=== PATIENT | male | born 1940 | race Caucasian/White ===

== ENCOUNTER → 2017-08-03 08:21 | Outpatient (CLI) | payer MEDICARE, OTHER, SELFPAY ==
[2017-08-03 10:30] LABS: Cholesterol 174 mg/dL (140-199); HDL Cholesterol 51 mg/dL (40-60); LDL Cholesterol Calculated 105 mg/dL (<100); Triglycerides 90 mg/dL (35-150)
== END ==
PROVIDERS: PCP Family Medicine; Visit Provider Internal Medicine Cardiovascular Disease
DX: I25.10 Atherosclerotic heart disease of native coronary artery without angina pectoris (principal); E78.6 Lipoprotein deficiency
CPT/HCPCS: 36415; 80061

== ENCOUNTER → 2017-09-27 12:44 | Outpatient (CLI) | payer MEDICARE, OTHER, SELFPAY ==
--- NOTE | 2017-09-27 | DI.MRI.S_ITS ---
PROCEDURE: MRFOOT LT WO CON INDICATIONS: LEFT FOOT PAIN TECHNIQUE: Noncontrast sagittal T1 spin echo and T2 fast spin echo with fat saturation, long-axis T1 spin echo and T2 fast spin echo with fat saturation, short-axis T1 spin echo and T2 fast spin echo with fat saturation through the forefoot. COMPARISON: [facility], , FOOT 3V LEFT, 05/10/2017, 16:00. FINDINGS: Image quality: Excellent. Bones and joints: No bone marrow contusions or metatarsal stress fractures. The sesamoid bones appear in expected positions, without internal edema. Mild first metatarsophalangeal joint degeneration. No intraosseous lesions. There is scattered mid foot degenerative spurring and subchondral cystic change. Soft tissues: The visualized plantar foot muscles demonstrate normal signal and bulk. Visualized flexor and extensor tendons appear intact, without tenosynovitis. The distal insertions of the peroneus brevis and longus tendons appear intact. The principal Lisfranc ligament appears intact. No soft tissue ganglion cysts or bursal fluid collections. Sagittal images demonstrate no evidence for plantar plate tears. IMPRESSION: Diffuse midfoot joint degeneration. While technically nonspecific, this appearance in conjunction with vascular calcifications on the comparison radiograph dated 05/10/17 raise the possibility of early neuropathic arthropathy. Please correlate clinically. Mild first MTP joint degeneration. Dictated by: Rodrigue Hinojosa M.D. on 09/27/2017 at 16:42 Approved by: Rodrigue Hinojosa M.D. on 09/27/2017 at 16:51
== END ==
PROVIDERS: Family Provider Family Medicine; PCP Family Medicine; Visit Provider Family Medicine
DX: M19.072 Primary osteoarthritis, left ankle and foot (principal); M79.672 Pain in left foot
CPT/HCPCS: 73718

== ENCOUNTER 2017-10-06 16:56 | Emergency (ER) | payer MEDICARE, OTHER, SELFPAY ==
[2017-10-06 16:58] VITALS: BP 135/70; PULSE 60; RESP 20; TEMP 36.7; O2SAT 100; BMI 25.0
--- NOTE | 2017-10-06 17:02 | DI.RAD.S_ITS ---
PROCEDURE: XR RIBS RT MIN 3V W CXR 1V INDICATIONS: injury, pain TECHNIQUE: 3 views of the right ribs were acquired, along with a single view chest. COMPARISON: [facility], , CHEST 1 VIEW, 06/27/2016, 22:59. FINDINGS: Surgical changes and devices: None. Bones and chest wall: No fractures or dislocations. No suspicious bony lesions. Overlying soft tissues appear unremarkable. Lungs and pleura: No pleural effusions or pneumothorax. Lungs appear clear. Mediastinum: Mediastinal contours appear normal. Heart size is normal. IMPRESSION: No visualized acute fracture or dislocation. However, if clinical concern and/or pain persist, short interval imaging followup in 7-10 days is recommended, as occult injury cannot be definitively excluded. Dictated by: Sonja Díaz M.D. on 10/06/2017 at 18:05 Approved by: Sonja Díaz M.D. on 10/06/2017 at 18:07
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
[2017-10-06 17:48] VITALS: BP 133/60; PULSE 61; RESP 15; O2SAT 100
[2017-10-06 18:12] VITALS: PULSE 100; RESP 22; O2SAT 98
== END 2017-10-06 18:13 | disposition home or self-care (01) ==
LOC: ED 17:57
PROVIDERS: Emergency Provider Emergency Medicine; Family Provider Family Medicine; PCP Family Medicine
DX: S22.31XA Fracture of one rib, right side, initial encounter for closed fracture (principal); W18.30XA Fall on same level, unspecified, initial encounter
CPT/HCPCS: 71101; 99282; 99283

== ENCOUNTER 2017-11-15 06:48 | Day surgery (SDC) | payer MEDICARE, OTHER, SELFPAY ==
[2017-11-02 15:16] VITALS: BMI 25.0
[2017-11-15] VITALS (7 sets, daily range): BP systolic 112–126; BP diastolic 48–64; PULSE 60–74; RESP 10–20; TEMP 36–36.9; O2SAT 95–97; BMI 25.0
[2017-11-15] MEDS: LACTATED RINGERS 1,000 ML 100 ML IV (07:31)
--- NOTE | 2017-11-15 07:44 | PM.PREOP ---
Pre-operative Note Interval Note Pre-op Check: Yes History & Physical Reviewed by Physician and Yes Exam Performed Changes: No H&P completed within 30 days and has changed as indicated here:: Patient seen and examined today. History physical examination as documented within the last 30 days on the chart has not changed. Patient marked in preoperative area for surgery. Proceed with left inguinal hernia repair with mesh as planned today.
[2017-11-15] MEDS: MIDAZOLAM 2 MG/2 ML VIAL 1 MG IV (07:45)
[2017-11-15] MEDS: CEFAZOLIN 2 GM/100 ML FROZ.PIGGY IV (07:57)
--- NOTE | 2017-11-15 08:22 | SUR.OPER ---
Supine on padded OR bed, head on pillow, arms secured on padded arm boards at <90 degrees abduction, legs uncrossed, safety belt at thigh, tape over blanket over lower legs.
[2017-11-15] MEDS: BUPIVACAINE 0.5% (PF) VIAL 30 ML INJ (08:29)
[2017-11-15] MEDS: LIDOCAINE 1% W/EPI INJ 20 ML INJ (08:30)
[2017-11-15] MEDS: CEFAZOLIN 1 GM VIAL IV (08:31)
[2017-11-15] MEDS: LACTATED RINGERS 1,000 ML 42 ML IV (09:00)
--- NOTE | 2017-11-15 09:54 | PM.OP.1 ---
Operative Date/Time/Diagnoses Date of procedure: 11/15/17 Time of procedure: 09:54 Pre-op diagnosis: Symptomatic recurrent left inguinal hernia Post-op diagnosis: other (Symptomatic recurrent direct and indirect left inguinal hernia with lipoma of the cord) Procedure & Clinicians Procedure: Open repair of recurrent left inguinal hernia with mesh Same procedure as scheduled: Yes Indications: 76-year-old male with recurrent left inguinal mass causing pain and discomfort with activity. Examination and evaluation were consistent with recurrent left inguinal hernia. Open repair with mesh was recommended. Surgeon: Shayan Sharp Click Yes if Unassisted: Yes Anesthesia Type: General Operative Notes Findings: 1. Dense adhesions between the external oblique fascia, rectus fascia, and underlying spermatic cord. 2. Fusion of the external oblique fascia and rectus fascia due to chronic scar 3. 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 Reducible indirect left inguinal hernia 5. Direct left inguinal hernia also reducible 6. Intact spermatic cord structures including spermatic vessels and vas deferens. Ilioinguinal nerve could not be exactly identified in the scar tissue. 7. Normal position of testicles bilaterally at the conclusion of the case 8. Old permanent suture material within the operative field consistent with prior primary tissue repair in the distant past. No existing piece of mesh was found. Closure Type: primary Specimen(s): none sent Implants & Drains: Medium-size polypropylene Pro Loop mesh plug and onlay patch in the left inguinal canal Estimated Blood Loss (mL): 10 Blood products transfused: none Procedure in detail: After obtaining informed consent the patient was brought to the operating room placed supine on the table. After satisfactory induction of anesthesia the abdomen and genitalia were prepped and draped in usual sterile fashion. A SCOAP time-out was performed per standard protocol. A 1 :1 mixture 1% lidocaine with 1 :100,000 epinephrine and 0.5% plain Marcaine was injected in the skin and subcutaneous tissue of the left inguinal region for postoperative analgesia. Existing oblique scar was identified and incised with 10 scalpel blade. Bovie was used to achieve hemostasis and carried the dissection through the scar and subcutaneous tissue. A Weitlaner retractor was used to provide exposure. At this point meticulous sharp dissection and blunt dissection was employed in order to identify the tissue planes and the spermatic cord. Great care was taken to avoid injury to the structures. Cord was eventually identified and liberated from surrounding connective tissue with a combination of Metzenbaum scissors and blunt dissection. Spermatic cord was eventually encircled with the surgeon's fingers followed by a Maria Del Carmen drain. Cord was skeletonized using DeBakey forceps. The ileopubic tract was identified along with the conjoined tendon. Again, the external oblique fascia and rectus fascia were fused. However, the tissue was identified for purposes of the repair. Dissection of the spermatic cord revealed the direct hernia, indirect hernia, and large lipoma of the cord. The lipoma of the cord was removed after being clamped with hemostats and secured with 2 0 Vicryl suture ligatures. Indirect hernia sac was easily reduced back into the abdominal cavity. Direct hernia sac was liberated from surrounding scar tissue and reduced as well. Mesh was brought onto the operative field and soaked in Ancef solution. Plug was placed in the internal inguinal ring and secured with interrupted 2 0 Vicryl suture to surrounding connective tissue. Onlay patch was brought onto the operative field and secured with interrupted 0 Tycron sutures circumferentially. Laterally the mesh was secured to the ileal pubic tract while anteriorly was secured to the conjoined tendon. Medially the mesh was secured to the fused fascia as described above. Tails of the mesh were brought around the spermatic cord and placed deep to the external oblique fascia and secured with a single 0 Tycron suture. The repair was nicely intact and there was no evidence of strangulation of the cord through the mesh defect. Wound was irrigated with copious amounts of sterile saline solution and hemostasis was verified. Fascia was closed over the cord using running 3 0 Vicryl suture. Subcutaneous tissue was closed with interrupted 3 0 Vicryl suture. Skin was closed with a running 4 O Monocryl subcuticular stitch. Skin adhesive was placed over the wound. Testicles were normal descended position bilaterally at the conclusion of the case. Anesthesia was reversed and patient taken recovery in stable condition. Complications: none Condition: stable Disposition: PACU Plan for aftercare: 1. Discharge home 2. Follow up in surgery Clinic in 2 weeks
== END 2017-11-15 11:09 | disposition home or self-care (01) ==
PROVIDERS: Family Provider Family Medicine; PCP Family Medicine; Visit Provider Surgery
PROC: (CPT 49520; principal; 2017-11-15 07:45)
DX: K40.91 Unilateral inguinal hernia, without obstruction or gangrene, recurrent (principal); D17.6 Benign lipomatous neoplasm of spermatic cord; K66.0 Peritoneal adhesions (postprocedural) (postinfection); I25.10 Atherosclerotic heart disease of native coronary artery without angina pectoris
CPT/HCPCS: 49520; 93005; 93010; C1781; J0690; J1100; J2250; J2405; J2704; J3010

== ENCOUNTER → 2018-04-20 09:38 | Outpatient (CLI) | payer MEDICARE, OTHER, SELFPAY ==
[2018-04-20 10:24] LABS: Alanine Aminotransferase 35 IU/L (21-72); Albumin 4.2 g/dL (3.5-5.0); Albumin Globulin Ratio 1.4 (1.0-2.8); Alkaline Phosphatase 52 U/L (38-126); Aspartate Aminotransferase 34 IU/L (17-59); BUN Creatinine Ratio 19.1 (6-22); Bilirubin Total 1.5 mg/dL (0.2-1.3); Blood Urea Nitrogen 21 mg/dL (9-20); Calcium 9.4 mg/dL (8.4-10.2); Carbon Dioxide 27 mmol/L (22-32); Chloride 104 mmol/L (98-107); Cholesterol 139 mg/dL (140-199); Estimated Glomerular Filt Rate > 60.0 mL/min (>60); Glucose 98 mg/dL (80-110); HDL Cholesterol 49 mg/dL (40-60); HEMOLYSIS 16 (0-50); LDL Cholesterol Calculated 75 mg/dL (<100); Magnesium 2.2 mg/dL (1.6-2.3); Potassium 4.9 mmol/L (3.4-5.1); Sodium 139 mmol/L (137-145); Total Protein 7.2 g/dL (6.3-8.2); Triglycerides 76 mg/dL (35-150)
== END ==
PROVIDERS: Family Provider Family Medicine; PCP Family Medicine; Visit Provider Nurse Practitioner
DX: I48.0 Paroxysmal atrial fibrillation (principal); E78.5 Hyperlipidemia, unspecified
CPT/HCPCS: 36415; 80053; 80061; 83735

== ENCOUNTER → 2018-05-26 16:01 | Outpatient (CLI) | payer MEDICARE, OTHER, SELFPAY ==
--- NOTE | 2018-05-26 | DI.RAD.S_ITS ---
PROCEDURE: XR HUMERUS LT 2V INDICATIONS: LEFT HUMERUS PAIN TECHNIQUE: 2 views of the humerus were acquired. COMPARISON: None. FINDINGS: Bones: No fractures or dislocations. No suspicious bony lesions. Moderate AC and glenohumeral joint degeneration. Soft tissues: No suspicious soft tissue calcifications. IMPRESSION: No fracture. If the patient's pain or other symptoms persist, consider further evaluation with MRI Left shoulder joint degeneration Dictated by: Rodrigue Hinojosa M.D. on 05/26/2018 at 17:17 Approved by: Rodrigue Hinojosa M.D. on 05/26/2018 at 17:18
== END ==
PROVIDERS: PCP Family Medicine; Visit Provider Family Medicine
DX: M79.622 Pain in left upper arm (principal); M19.012 Primary osteoarthritis, left shoulder
CPT/HCPCS: 73060

== ENCOUNTER 2019-06-27 09:53 | Emergency (ER) | payer MEDICARE, OTHER, SELFPAY ==
[2019-06-27 09:55] VITALS: BP 161/65; PULSE 74; RESP 16; TEMP 36.6; O2SAT 97
--- NOTE | 2019-06-27 09:58 | DI.RAD.S_ITS ---
PROCEDURE: XR FOOT RT MIN 3V INDICATIONS: 5th MT pain after twisting injury TECHNIQUE: 3 views of the foot were acquired. COMPARISON: [facility], , FOOT 3V LEFT, 05/10/2017, 16:00. FINDINGS: Bones: No fractures or dislocations. No suspicious bony lesions. Soft tissues: No tibiotalar joint effusion. Achilles tendon appears normal. Extensive small vessel calcifications suggest diabetes. IMPRESSION: No evidence acute bony abnormality of the right foot. If clinical suspicion and/or symptoms persist, further assessment with repeat plain films, or advanced imaging (e.g., CT, MRI, or bone scan) may be helpful for further assessment. Dictated by: Jn Carlos M.D. on 06/27/2019 at 10:38 Approved by: Jn Carlos M.D. on 06/27/2019 at 10:39
--- NOTE | 2019-06-27 10:07 | ED_ITS ---
HPI - Extremity Injury (Lower) General Chief Complaint: Extremity Injury, Lower Stated Complaint: right foot broken today/on asa Time Seen by Provider: 06/27/19 09:58 Source: patient Mode of arrival: Ambulatory Limitations: no limitations History of Present Illness HPI Narrative: 78-year-old male here for evaluation of right foot injury. Patient comes walking with the aid of crutches however putting pressure on his right foot. Patient states that he was walking this morning when he stepped off the curb and felt/heard a pop in his right foot. Since then he has had pain. He has been able to walk however it has been uncomfortable. No other injuries reported from the event. Related Data Home Medications Medication Instructions Recorded Confirmed aspirin 81 mg PO QDAY #0 06/27/16 06/16/18 metoprolol tartrate 12.5 mg PO DAILY #0 06/27/16 06/16/18 multivitamin 1 tab PO DAILY 10/06/17 06/16/18 atorvastatin 20 mg tablet 20 mg PO DAILY 12/07/17 06/16/18 coenzyme Q10 100 mg capsule 100 mg PO DAILY 12/07/17 06/16/18 apixaban 5 mg tablet 5 mg PO BID 06/16/18 06/16/18 Allergies Allergy/AdvReac Type Severity Reaction Status Date / Time No Known Allergies Allergy Verified 06/16/18 18:20 Review of Systems Constitutional Constitutional: Denies headache(s) ENT Ears, Nose, Mouth, and Throat: Denies headache(s) Musculoskeletal Musculoskeletal: Denies tingling Comments: Right foot pain Integumentary/Breasts Skin/Breast: Denies lesions and Denies rash Neurologic Neurologic: Denies headache(s) and Denies tingling Hematologic/Lymphatic Hematologic/Lymphatic: Denies easy bleeding and Denies easy bruising Patient History Medical History Ankle pain (Acute) Colon polyps (Acute) Coronary artery disease (Acute) Elevated cholesterol (Acute) GERD (gastroesophageal reflux disease) (Acute) Hernia of abdominal wall (Acute) History of angina (Acute) Surgical History (Updated 11/02/17 @ 15:18 by Lashaun Trinidad RN) History of cataract extraction with lens replacement (Acute) History of heart artery stent (Acute) History of inguinal hernia repair, bilateral (Acute) Social History marital status: household members: spouse Smoking Status: Never smoker alcohol intake: current substance use type: does not use Smoking Status: Never smoker alcohol intake frequency: 0-2 drinks per day Substance Use Type: does not use Exam Initial Vital Signs Initial Vital Signs: Vital Signs Temperature 97.8 F 06/27/19 09:55 Pulse Rate 74 06/27/19 09:55 Respiratory Rate 16 06/27/19 09:55 Blood Pressure 161/65 H 06/27/19 09:55 Pulse Oximetry 97 06/27/19 09:55 Const General: cooperative, comfortable and well developed Limitations: mental status not altered Cardio Pulses: dorsalis pedis present on the right Skin Lesions: no lesions Rashes: no rashes Neuro Sensory Exam: no sensory deficits noted Extrem Other: Patient has no proximal fibula tenderness. Able to flex and extend at the right ankle without pain. Has tenderness to palpation along the 5th metatarsal on the right foot. Otherwise his right foot exam is unremarkable. Does unremarkable. Course Orders Ordered: ED Orders 06/27/19 09:58 XR foot RT min 3V Stat Vital Signs Vital signs: Vital Signs - 8 hr 06/27/19 09:55 06/27/19 10:36 Temperature 97.8 F Pulse Rate 74 Pulse Rate [Right Dorsalis Pedis] 70 Respiratory Rate 16 Blood Pressure 161/65 H Pulse Oximetry 97 MDM - Extremity Injury (Lower) Imaging Data Extremity x-ray #1: Radiologist's Impression: [address] [address] XRay Report Signed Patient: Len Bennett RMR#: [id number] : [id number] Age/Sex: 78 / MDate of Service: 06/27/19 Loc: ED Accession Number: [id number] Procedure: XR foot RT min 3V Ordering Provider: Aurelio Elder D.O. PROCEDURE: XR FOOT RT MIN 3V INDICATIONS: 5th MT pain after twisting injury TECHNIQUE: 3 views of the foot were acquired. COMPARISON: [facility], , FOOT 3V LEFT, 05/10/2017, 16:00. FINDINGS: Bones: No fractures or dislocations. No suspicious bony lesions. Soft tissues: No tibiotalar joint effusion. Achilles tendon appears normal. Extensive small vessel calcifications suggest diabetes. IMPRESSION: No evidence acute bony abnormality of the right foot. If clinical suspicion and/or symptoms persist, further assessment with repeat plain films, or advanced imaging (e.g., CT, MRI, or bone scan) may be helpful for further assessment. Dictated by: Jn Carlos M.D. on 06/27/2019 at 10:38 Approved by: Jn Carlos M.D. on 06/27/2019 at 10:39 Discharge Plan Departure Patient Disposition: Home Clinical Impression: Injury of foot, right Qualifiers: Encounter type: initial encounter Qualified Code(s): S99.921A - Unspecified injury of right foot, initial encounter Instructions: How to Use Crutches, How To Perform RICE (Rest, Ice, Compress, Elevate) Activity Restrictions/Additional Instructions: There were no fractures noted on the x-rays. You can use the crutches as needed however you can put pressure on your right foot and walk as tolerated. I do recommend you keep her foot elevated and iced. Return to the emergency department for any new or worsening symptoms Prescriptions: No Action Eliquis 5 mg tablet 5 mg PO BID RF: 0 aspirin 81 MG tablet,delayed release (DR/EC) 81 mg PO QDAY Qty: 0 RF: 0 metoprolol tartrate 25 MG tablet 12.5 mg PO DAILY Qty: 0 RF: 0 atorvastatin 20 mg tablet 20 mg PO DAILY RF: 0 coenzyme Q10 100 mg capsule 100 mg PO DAILY RF: 0 multivitamin 1 tab PO DAILY RF: 0 Referrals: Aurelio Rand MD [Primary Care Provider] -
[2019-06-27 10:36] VITALS: PULSE 70
[2019-06-27 11:15] VITALS: BP 146/72; PULSE 62; RESP 14; O2SAT 100
== END 2019-06-27 11:16 | disposition home or self-care (01) ==
PROVIDERS: Emergency Provider Emergency Medicine; PCP Family Medicine
DX: S99.921A Unspecified injury of right foot, initial encounter (principal); W22.8XXA Striking against or struck by other objects, initial encounter
CPT/HCPCS: 73630; 99283

== ENCOUNTER → 2019-08-27 12:27 | Outpatient (CLI) | payer MEDICARE, OTHER, SELFPAY ==
[2019-08-27 13:34] LABS: INR 1.4 (0.9-1.3); Prothrombin Time 16.3 SECONDS (10.1-12.7)
[2019-08-27 13:45] LABS: BUN Creatinine Ratio 18.4 (6-22); Blood Urea Nitrogen 18 mg/dL (9-20); Calcium 9.3 mg/dL (8.4-10.2); Carbon Dioxide 23 mmol/L (22-32); Chloride 106 mmol/L (98-107); Estimated Glomerular Filt Rate > 60.0 mL/min (>60); Glucose 99 mg/dL (80-110); HEMOLYSIS < 15 (0-50); Potassium 4.7 mmol/L (3.4-5.1); Sodium 138 mmol/L (137-145)
== END ==
PROVIDERS: PCP Family Medicine; Referring Provider Internal Medicine Cardiovascular Disease; Visit Provider Internal Medicine Cardiovascular Disease
DX: I20.0 Unstable angina (principal)
CPT/HCPCS: 36415; 80048; 85610

== ENCOUNTER → 2019-12-15 09:25 | Outpatient (CLI) | payer MEDICARE, OTHER, SELFPAY ==
[2019-12-16 22:41] LABS: COVID19 Sendout Not Detected (Not Detect)
== END ==
PROVIDERS: PCP Family Medicine; Visit Provider Physician Assistant
DX: Z11.59 Encounter for screening for other viral diseases (principal)
CPT/HCPCS: 87635

== ENCOUNTER → 2019-12-18 09:09 | Outpatient (CLI) | payer MEDICARE, OTHER, SELFPAY ==
--- NOTE | 2019-12-18 | DI.ECHO.S_ITS ---
[place] [facility]---------+ [facility] +---------+ : : [address] : : : : [place] : : : : [id number] : : : : Phone: [phone]+ Echocardiogram Report + + :Name: CHRISTOPHER BETANCOURT Study Date: 12/18/2019 Height: 68 in : :[facility] Weight: 160 lb : : Gender: Male BSA: 1.9 m2 : :: 1940 Age: 79 yrs BP: 114/66 mmHg: :Reason For Study: ATRIAL FIBRILLATION : :Ordering Physician: Jun NORRISformed By: Marbella Torres : :Referring: MAHESH NORRIS : + + Interpretation Summary The left ventricle is normal in size and wall thickness. The ejection fraction is estimated to be 55-60%. Left ventricular wall motion is normal. Diastolic parameters suggest a relaxation abnormality of the left ventricle, consistent with probable normal filling pressures. The right ventricle is at the upper limits of normal in size. The right ventricular systolic function is normal. Pulmonary artery pressures cannot be estimated because of the lack of a measurable TR jet velocity but the IVC suggests a CVP of around 3 mmHg. Both atria are normal in size. The atrial septum is aneurysmal. Cannot rule out PFO. Consider agitated saline contrast study (bubble study) to rule out shunt. There is no significant valvular heart disease. The ascending aorta is mildly enlarged. Procedure: A two-dimensional transthoracic echocardiogram with color flow and Doppler was performed. The study quality was technically adequate. Comparison is made with the echocardiogram of 06/20/2015. The patient was in sinus bradycardia with heart rates between 55 bpm during the exam. Left Ventricle: The left ventricle is normal in size and wall thickness. The ejection fraction is estimated to be 55-60%. Left ventricular wall motion is normal. Diastolic parameters suggest a relaxation abnormality of the left ventricle, consistent with probable normal filling pressures. Right Ventricle: The right ventricle is at the upper limits of normal in size. The right ventricular systolic function is normal. Atria: Both atria are normal in size. The atrial septum is aneurysmal. Cannot rule out PFO. Consider agitated saline contrast study (bubble study) to rule out shunt. Mitral Valve: The mitral valve leaflets appear mildly thickened, but open well. There is trace mitral regurgitation. Aortic Valve: The aortic valve is trileaflet. The aortic valve opens well. There is no aortic valve stenosis. No aortic regurgitation is present. Tricuspid Valve: The tricuspid valve is normal in structure and function. There is a trace or physiologic amount of tricuspid regurgitation. Pulmonary artery pressures cannot be estimated because of the lack of a measurable TR jet velocity but the IVC suggests a CVP of around 3 mmHg. Pulmonic Valve: The pulmonic valve is not well seen, but is grossly normal. There is mild pulmonic regurgitation. There is no significant valvular heart disease. Great Vessels: The aortic root is normal size. The ascending aorta is mildly enlarged. The IVC is of normal diameter and collapses greater than 50% with a sniff. This suggests a low right atrial pressure of 3 mm Hg. Pericardium/ Pleura There is no pericardial effusion. There is no pleural effusion. MMode/2D Measurements & Calculations LVIDd: 4.3 cm LVOT diam: 2.4 cm LVIDs: 3.2 cm Ao root diam: 3.3 cm FS: 26.5 % asc Aorta Diam: 3.7 cm EPSS: 0.73 cm Ao Arch Diam (Prox Trans): 3.3 cm IVSd: 0.79 cm LVPWd: 0.89 cm LV babb. diameter/BSA (cm/m^2): 2.3 LV sys. diameter/BSA (cm/m^2): 1.7 LA A2 area: 23.3 cm2 RA long axis: 6.3 cm LA A4 area: 18.0 cm2 RA area: 20.4 cm2 LA length (vol): 5.8 cm RA vol: 56.6 ml LA vol: 61.8 ml RA : 30.5 ml/m2 LA vol index: 33.3 ml/m2 IVC diam: 1.7 cm RVD1 (basal): 4.0 cm TAPSE: 2.3 cm Doppler Measurements & Calculations Ao V2 max: 123.1 cm/sec LVOT Max Otis: 86.7 cm/sec Ao V2 mean: 85.2 cm/sec LV V1 max P.0 mmHg Ao max P.1 mmHg LV V1 VTI: 20.7 cm Ao mean P.3 mmHg NANCY(I,D): 3.4 cm2 Ao V2 VTI: 26.6 cm NANCY(V,D): 3.1 cm2 sev ratio: 0.78 NANCY indexed to BSA (cm^2/m^2): 1.9 MV E max otis: 50.9 cm/sec SV(LVOT): 91.7 ml MV A max otis: 56.2 cm/sec MV E/A: 0.91 Med Peak E' Otis: 8.9 cm/sec E/E' med: 5.7 Lat Peak E' Otis: 12.8 cm/sec E/E' lat: 4.0 E/e' average: 4.9 MV dec time: 0.32 sec Reading Physician:04:30 PM
--- NOTE | 2019-12-18 18:24 | DI.NM.S_ITS ---
DATE OF SERVICE: 12/18/2019 PROCEDURE: Exercise perfusion study. INDICATIONS: AFib, atrial flutter, history of multiple PCI to LAD, circumflex, as well as RCA. RADIOPHARMACEUTICAL: 26 millicurie technetium-99m Myoview IV was injected at stress and 12.5 millicurie technetium-99m Myoview IV was injected at rest. CARDIAC STRESS: The patient underwent exercise perfusion study under the supervision of an attending staff. He walked on Malcom protocol for 8 minutes 31 seconds, achieved 92 percent of target heart rate and normal blood pressure response. Baseline blood pressure 130/62. Peak blood pressure 152/84. The patient achieved functional aerobic impairment of -43 percent and 10.1 METs of workload. Baseline rhythm was sinus. During stress, there were no convincing ischemic changes. No significant sustained arrhythmias. At around 7 minutes and 50 seconds into the exercise, patient felt chest discomfort, which increased to 4 in intensity on a scale of 1-10 and subsided at rest. RAW DATA: There is increased subdiaphragmatic activity. GATED STUDY: Stress LV ejection fraction 69 and resting LV ejection 58 percent without any obvious wall motion abnormalities. Resting end-diastolic volume 109 mL. TID ratio 1.06, which is within normal limits. Lung/heart ratio 0.56, which is abnormal. However, on visual inspection of the raw images, I do not see any significant lung uptake. MYOCARDIAL PERFUSION: Stress supine, resting supine and stress prone images were compared to each other. Stress supine and resting supine images revealed moderate size, moderate to severely decreased perfusion of inferior wall, inferoapex, as well as basal inferior lateral wall, which got significantly improved during prone images, suggestive of diaphragmatic tissue attenuation artifact. Prone images revealed minimally decreased perfusion of inferior apex. There was significant improvement in prone images. No reversible ischemia. CONCLUSION: I will call this study likely a normal exercise perfusion study with evidence of diaphragmatic tissue attenuation artifact, which got significantly improved during prone images. No reversible ischemia. Excellent exercise tolerance. The patient walked on Malcom protocol for 8 minutes 31 seconds with normal hemodynamic response. Functional aerobic impairment -43 percent. The patient did develop transient chest discomfort at peak exercise with resolution in recovery. However, there were no convincing ischemic electrocardiographic changes. As far as perfusion scan is concerned, this is a low-risk myocardial perfusion scan. On visual inspection, I do not see any significant lung uptake. Transient ischemic dilatation ratio was within normal limits. Len Bennett - ASPEN/farhan/hemalatha doc#: [id number]/job#: [id number] dd: 12/18/2019 17:28:00 dt: 12/18/2019 18:14:00 DICTATING MD/COPIES TO: Dianne Murcia MD COPIES MNE: RADHA;
== END ==
PROVIDERS: PCP Family Medicine; Referring Provider Physician Assistant; Visit Provider Internal Medicine Cardiovascular Disease
DX: I37.1 Nonrheumatic pulmonary valve insufficiency (principal); I77.89 Other specified disorders of arteries and arterioles; I48.0 Paroxysmal atrial fibrillation; I48.92 Unspecified atrial flutter; I25.118 Atherosclerotic heart disease of native coronary artery with other forms of angina pectoris; Z95.5 Presence of coronary angioplasty implant and graft
CPT/HCPCS: 36415; 78452; 84439; 84443; 93017; 93306; A9502

== ENCOUNTER → 2020-03-03 09:43 | Outpatient (CLI) | payer MEDICARE, OTHER, SELFPAY ==
[2020-03-03 11:42] LABS: Add Manual Diff / Slide Review NO; Basophils Absolute Auto 100 /uL (0-100); Basophils Percent Auto 1.3 % (0-2); Eosinophils Absolute Auto 100 /uL (0-450); Eosinophils Percent Auto 0.9 % (2-4); Hematocrit 40.8 % (41-53); Hemoglobin 14.3 g/dL (13.5-17.5); Lymphocytes Absolute Auto 1000 /uL (1100-4500); Lymphocytes Percent Auto 17.1 % (25-40); Mean Corpuscular Hemoglobin 31.8 PG (26-34); Mean Corpuscular Volume 90.8 fL (80-100); Monocytes Absolute Auto 700 /uL (0-900); Monocytes Percent Auto 11.5 % (3-14); Neutrophils Absolute Auto 4200 /uL (1500-7000); Neutrophils Percent Auto 69.2 % (50-75); Platelet Count 214 X10^3/uL (150-400); Red Blood Cell Count 4.49 X10^6/uL (4.5-5.9); Red Cell Distribution Width 12.4 % (11.6-14.8); White Blood Cell Count 6.1 X10^3/uL (4.5-11.0)
[2020-03-03 11:59] LABS: Alanine Aminotransferase 25 IU/L (<50); Albumin Globulin Ratio 1.3 (1.0-2.8); Alkaline Phosphatase 65 U/L (38-126); Amylase 101 U/L (30-110); Aspartate Aminotransferase 31 IU/L (17-59); BUN Creatinine Ratio 17.3 (6-22); Blood Urea Nitrogen 18 mg/dL (9-20); Calcium 9.4 mg/dL (8.4-10.2); Carbon Dioxide 29 mmol/L (22-32); Chloride 104 mmol/L (98-107); Estimated Glomerular Filt Rate > 60.0 mL/min (>60); Glucose 89 mg/dL (80-110); HEMOLYSIS < 15 (0-50); Lipase 220 U/L (23-300); Potassium 4.5 mmol/L (3.4-5.1); Sodium 136 mmol/L (137-145)
[2020-03-03 12:01] LABS: C-Reactive Protein Quant < 0.5 mg/dL (<1.0)
[2020-03-03 12:25] LABS: TSH w/ Reflex to FT4 1.25 uIU/mL (0.47-4.68)
[2020-03-03 12:27] LABS: Erythrocyte Sedimentation Rate 6 MM/HR (0-15)
== END ==
PROVIDERS: PCP Internal Medicine; Referring Provider Internal Medicine; Visit Provider Internal Medicine
DX: E78.2 Mixed hyperlipidemia (principal); I25.10 Atherosclerotic heart disease of native coronary artery without angina pectoris; R19.7 Diarrhea, unspecified; R63.4 Abnormal weight loss
CPT/HCPCS: 36415; 80053; 82150; 83690; 84443; 85025; 85651; 86140

== ENCOUNTER → 2020-07-01 08:34 | Outpatient (CLI) | payer MEDICARE, OTHER, SELFPAY ==
[2020-07-01 09:37] LABS: Alanine Aminotransferase 25 IU/L (<50); Albumin 3.7 g/dL (3.5-5.0); Albumin Globulin Ratio 1.6 (1.0-2.8); Alkaline Phosphatase 58 U/L (38-126); Aspartate Aminotransferase 30 IU/L (17-59); BUN Creatinine Ratio 17.5 (6-22); Bilirubin Total 1.1 mg/dL (0.2-1.3); Blood Urea Nitrogen 20 mg/dL (9-20); Calcium 9.3 mg/dL (8.4-10.2); Carbon Dioxide 24 mmol/L (22-32); Chloride 108 mmol/L (98-107); Estimated Glomerular Filt Rate > 60.0 mL/min (>60); Globulin 2.3 g/dL (1.7-4.1); Glucose 93 mg/dL (80-110); HEMOLYSIS < 15 (0-50); Potassium 4.6 mmol/L (3.4-5.1); Sodium 139 mmol/L (137-145)
[2020-07-01 09:47] LABS: INR 1.4 (0.9-1.3); Prothrombin Time 15.6 SECONDS (10.1-12.7)
[2020-07-02 08:12] LABS: Homocysteine 11.9 umol/L (0.0-19.2)
[2020-07-03 08:14] LABS: Cholesterol, Total 132 mg/dL (100-199); HDL-Cholesterol 47 mg/dL (>39); HDL-Particle (Total) 30.5 umol/L (>=30.5); LDL Particle 747 nmol/L (<1000); LDL Size 20.7 nm (>20.5); LDL-Cholsterol 69 mg/dL (0-99); LP-IR Score 33 (<=45); Small LDL- Particle 367 nmol/L (<=527); Triglycerides 80 mg/dL (0-149)
[2020-07-03 12:51] LABS: Lipoprotein (a) 62.8 nmol/L (<75.0)
== END ==
PROVIDERS: PCP Internal Medicine; Referring Provider Internal Medicine Cardiovascular Disease; Visit Provider Internal Medicine Cardiovascular Disease
DX: I48.0 Paroxysmal atrial fibrillation (principal); E78.5 Hyperlipidemia, unspecified
CPT/HCPCS: 36415; 80053; 80061; 83090; 83695; 83704; 85610

== ENCOUNTER → 2020-10-08 12:57 | Outpatient (CLI) | payer MEDICARE, OTHER, SELFPAY ==
--- NOTE | 2020-10-08 12:59 | DI.RAD.S_ITS ---
PROCEDURE: XR ANKLE LT MIN 3V INDICATIONS: swelling TECHNIQUE: 3 views of the ankle were acquired. COMPARISON: None. FINDINGS: Bones: No fractures or dislocations. Degenerative arthritis of the tibiotalar joint, likely posttraumatic. Mild widening of the ankle mortise laterally, of uncertain chronicity. No suspicious bony lesions. Soft tissues: No tibiotalar joint effusion. Achilles tendon appears normal. Mild soft tissue swelling. IMPRESSION: 1. Degenerative arthritis, likely posttraumatic. 2. Lateral widening of the ankle mortise, of uncertain chronicity. 3. No evidence acute bony abnormality of the left ankle. If clinical suspicion and/or symptoms persist, further assessment with repeat plain films, or advanced imaging (e.g., CT, MRI, or bone scan) may be helpful for further assessment. Dictated by: Jn Carlos M.D. on 10/08/2020 at 13:13 Approved by: Jn Carlos M.D. on 10/08/2020 at 13:15
== END ==
PROVIDERS: PCP Internal Medicine; Referring Provider Physician Assistant; Visit Provider Physician Assistant
DX: M25.472 Effusion, left ankle (principal); M19.072 Primary osteoarthritis, left ankle and foot
CPT/HCPCS: 73610

== ENCOUNTER → 2020-12-12 11:32 | Outpatient (CLI) | payer MEDICARE, OTHER, SELFPAY ==
[2020-12-12 13:41] LABS: COVID-19 CEPHEID PCR (VTM/NP) Negative (Negative)
== END ==
PROVIDERS: PCP Internal Medicine; Visit Provider Physician Assistant
DX: Z20.822 Contact with and (suspected) exposure to COVID-19 (principal); Z01.812 Encounter for preprocedural laboratory examination
CPT/HCPCS: C9803; U0003

== ENCOUNTER 2020-12-29 10:30 | Outpatient (RCR) | payer MEDICARE, OTHER, SELFPAY ==
--- OUTSIDE RECORDS SUMMARY | 2020-11-05 08:17 | XMS_ITS | Referral Summary ---
:1940 Author Organization [facility] Address [address] [place] [address] Care Team Providers Name Role Phone MD Tate Primary Care Provider Reason for Referral Rehabilitation - Outpatient (Routine) - Authorized Specialty Diagnoses / Procedures Referred By Contact Refer red To Contact Cardiac Rehabilitation Diagnoses Status post angioplasty with stent Paroxysmal atrial fibrillation (CMS/HCC) Coronary artery disease of [place] artery [place] heart with stable angina pectoris (CMS/HCC) [facility] [address] [place] [id number] [place], [place] Phone: [phone] Referral ID Status Reason Start Date Expiration Date Visits V isits Requested Authorized [id number] Authorized 08/28/2020 08/23/2021 1 1 Reason for Visit Reason Comments Coronary Artery Disease Hyperlipidemia Hospital Discharge Follow-up Encounter Details Date Type Department Care Team Description 08/27/2020 Office Visit [facility] Jose Luis Jones, Coronary artery disease of [place] artery [place] heart with stable angina pectoris (CMS/HCC) (Primary Dx); Clinics Cardiology [facility] Status post angioplasty with stent; [address] Paroxysmal atrial fibrillati on (CMS/HCC); [address] [place] [address], [address] Dyslipidemia [address] [place] [id number] [phone] Allergies Active Allergy Reactions Severity Noted Date Comments No Known Allergies 10/14/2016 documented as of this encounter (statuses as of 11/04/2020) Medications Medication Sig Dispensed Refills Start Date End Date Status atorvastatin Take 1 90 tablet 3 11/27/2018 Active (LIPITOR) 20 mg tablet by tablet mouth once every evening for high cholesterol. coenzyme Q10 Take 100 mg 0 Activ e (CoQ-10) 100 mg by mouth capsule daily MULTIVITAMIN ORAL Take 1 0 Ac tive tablet by mouth daily metoprolol Take 0.5 45 tablet 3 06/30/2020 Active succinate XL tablets 2 (TOPROL-XL) 25 mg (12.5 mg 24 hr tablet total) by mouth daily apixaban (ELIQUIS) Take 1 180 tablet 3 07/03/2020 Active 5 mg tablet tablet (5 mg total) by mouth 2 (two) times a day clopidogreL Take 1 90 tablet 3 09/03/2019 (PLAVIX) 75 mg tablet (75 1 tablet mg total) by mouth daily evolocumab 140 Inject 140 1 mL 3 07/03/2020 Dis continued mg/mL pen injector mg under the 1 (Therapy skin every completed ) 14 (fourteen) days documented as of this encounter (statuses as of 11/04/2020) Active Problems Problem Noted Date Paroxysmal atrial fibrillation 12/22/2017 Exertional chest pain 12/16/2017 History of coronary artery stent placement 11/11/2017 Coronary artery disease [place] artery [place] hea rt with stable 07/05/2017 angina pectoris Palpitations 07/05/2017 Dizziness 07/05/2017 SVT (supraventricular tachycardia) 07/05/2017 Tinnitus of both ears 07/05/2017 Dyslipidemia 07/05/2017 Low HDL (under 40) 07/05/2017 documented as of this encounter (statuses as of 11/04/2020) Immunizations Name Administration Dates Next Due Moderna SARS-CoV-2 Vaccine 05/12/2020, 04/14/2020 documented as of this encounter Social History Tobacco Use Types Packs/Day Years Used Date Never Smoker Smokeless Tobacco: Never Used Alcohol Use Standard Drinks/Week Comments No 0 (1 standard drink = 0.6 oz pure Stoppe d nightly wine 6 months ago alcohol) Sex Assigned at Date Recorded Not on file Job Start Date Occupation Industry Not on file Not on file Not on file documented as of this encounter Last Filed Vital Signs Vital Sign Reading Time Taken Comments Blood Pressure 98/58 08/27/2020 4:15 PM PDT Pulse - - Temperature - - Respiratory Rate - - Oxygen Saturation - - Inhaled Oxygen Concentration - - Weight 76 kg (167 lb 9.6 oz) 08/27/2020 4:15 PM PDT Height 172.7 cm (5' 8) 08/27/2020 4:15 PM PDT Body Mass Index 25.48 08/27/2020 4:15 PM PDT documented in this encounter Progress Notes MAEGAN Lucio - 08/27/2020 4:00 PM PDT Continue current medications Walk on flat surfaces, avoid hills if they cause discomfort Relax MAEGAN Lucio - 08/27/2020 4:00 PM PDT Subjective Patient ID: Len Bennett is a 79 y.o. male that had concerns including Coronary Artery Disease, Hyperlipidemia, and Hospital Discharge Follow-up. HPI: Len is a pleasant, anxious 79-year-old patient of Dr. Murcia'keo who comes to the clinic today for follow-up of successful IVUS guided CABINETMAKER HELPER PCI of the diagonal branch with a 2.5 x 15 mm resolute [place] CHRISTINA performed on 07/10/[facility] at [facility] by Dr. Fuentes. He was seen viatelemedicine on 07/02/2020 by the at [facility] complex coronary clinic for consideration of diagnostic angiography with PCI. He had been walking up to 4 miles a few times a week with a walking group and reported several months of angina when walking up hills associated with dyspnea and fatigue. He felt well after his August 2019 procedure and symptoms recurred. Review of angiogram by Dr. Fuentes revealed a residual large diagonal that was subtotally occluded. Revascularization was planned and patient underwent successful, uncomplicated PCI of large diagonal vessel via retrograde approach with a single stent placed via right radial artery access. There were no complications. ECG postprocedure showed sinus rhythm. He is on Plavix 75 mg daily. Care has been returned to primary trail construction worker, Dr. Murcia and he is here today for follow-up. Len continues to report chest pain when walking uphill. He describes this as left-sided anterior chest pain that he notices when his heart rate exceeds 120 bpm. Pain resolves with rest. He has not used sublingual nitroglycerin. Resting heart rate is 55. Blood pressures at home are 110s/60s. He reports occasional lightheadedness. He denies any shortness of breath, palpitations or edema. He does report occasional lightheadedness. He is tolerating medications well and looking forward to cardiac rehab. Problem list: CAD -PCI with CHRISTINA to mid LCx and OM branch June 2012 -PCI with CHRISTINA to proximal RCA June 2016 -PCI with CHRISTINA to mid LAD August 2019 Paroxysmal atrial fibrillation Atrial flutter during stress test 2017 Hypertension Hyperlipidemia Socially, patient is and lives with his . He is never smoked. He was previously a heavy drinker but does not drink currently. He is active and walks multiple times a week with a walking group. Past Medical History: Diagnosis Date ??? Arrhythmia PAF ??? Basal cell carcinoma ??? Chest pain ??? Coronary artery disease ??? Dizziness ??? Hyperlipidemia ??? Squamous cell carcinoma of skin of face Past Surgical History: Procedure Laterality Date ??? CARDIAC CATHETERIZATION 06/28 stentsx3 ??? INGUINAL HERNIA REPAIR Left 2018 ??? MOHS SURGERY 08/12/2015 Family History Problem Relation Age of Onset ??? Stroke Other Social History Socioeconomic History ??? Marital status: Spouse name: Not on file ??? Number of children: Not on file ??? Years of education: Not on file ??? Highest education level: Not on file Tobacco Use ??? Smoking status: Never Smoker ??? Smokeless tobacco: Never Used Substance and Sexual Activity ??? Alcohol use: No Comment: Stopped nightly wine 6 months ago ??? Drug use: No ??? Sexual activity: Defer Allergies Allergen Reactions ??? No Known Allergies Current Medication List Sig apixaban (ELIQUIS) 5 mg tablet Take 1 tablet (5 mg total) by mouth 2 (two) times a day atorvastatin (LIPITOR) 20 mg tablet Take 1 tablet by mouth once every evening for high cholesterol. clopidogreL (PLAVIX) 75 mg tablet Take 1 tablet (75 mg total) by mouth daily coenzyme Q10 (CoQ-10) 100 mg capsule Take 100 mg by mouth daily metoprolol succinate XL (TOPROL-XL) 25 mg 24 hr tablet Take 0.5 tablets (12.5 mg total) by mouth daily MULTIVITAMIN ORAL Take 1 tablet by mouth daily Review of Systems Constitutional: Negative for fatigue and unexpected weight change. Eyes: Negative for visual disturbance. Respiratory: Negative for chest tightness and shortness of breath. Cardiovascular: Negative for chest pain, palpitations and leg swelling. Endocrine: Negative for polydipsia. Genitourinary: Negative for hematuria. Skin: Negative for rash. Neurological: Negative for dizziness, weakness and light-headedness. Hematological: Does not bruise/bleed easily. Psychiatric/Behavioral: The patient is not nervous/anxious. All other systems reviewed and are negative. Objective Coronary angiography with PCI 07/10/2020 Coronary findings: Left main: The vessel is large and is angiographically normal. Left anterior descending colon previously placed mid LAD stent is widely patent. Second diagonal branch: Second diagonal lesion is 100% stenosed. Lesion is chronically occluded. Left circumflex: The vessel is moderate in size. There is mild diffuse disease in the vessel. Right coronary artery: The vessel is moderate in size. The vessel exhibits minimal luminal irregularities. Patent proximal stent. Intervention: PTCA was performed with a 2.5 x 40 mm compliant balloon. Follow-up angiography demonstrated a dissection plane in the diagonal branch post STAR. An IVUS imaging catheter was then inserted and demonstrated a distal reference vessel diameter of 2.3 mm. The proximal reference vessel diameter was 3.1 x 3.0 mm. There was a visible dissection plane and hematoma from the STAR as expected. A 2.5 x 15 mm resolute [place] CHRISTINA was then deployed in the proximal diagonal branch with good expansion. Final angiography revealed excellent results with 0% residual stenosis with no dissection, perforation or thrombosis. ECG 08/27/20 Sinus bradycardia [address] changes, QTC 413 ms BP 98/58 (BP Location: Left arm, Patient Position: Sitting) Ht 1.727 m Wt 76 kg BMI 25.48 kg/m?? Physical Exam: General Appearance: Anxious, pleasant, cooperative, no apparent distress HEET: Normocephalic atraumatic, EOMI Neck: No obvious mass, supple Respiratory: Good aeration, clear to auscultation and percussion, no rales or wheeze Cardiovascular: Nondisplaced PMI, RRR, normal S1 and normal S2, no murmurs/rubs/gallops, JVP 4-5 cm,no JVD Pulses: Carotid and radial pulses 2+ bilaterally without bruit, dorsalis pedis and anterior tibial pulses 2+ bilaterally Abdomen: Soft, nondistended, nontender, no heptosplenomegally, no hepatojugular reflux, normal bowelsounds without bruits Extremities: No clubbing, cyanosis or edema Neuro: Alert, no facial droop, tongue midline, no gross motor deficits Psych: Appropriate affect, normal mentation and memory Skin: Warm and dry, no rashes on face, neck, and lower extremities ECG today, 08/27/2020: Sinus bradycardia [address] changes, QTC 413 ms Assessment/Plan Diagnoses and all orders for this visit: Coronary artery disease of [place] artery of [place] heart with stable angina pectoris (CMS/HCC) Status post angioplasty with stent - ECG 12 Lead (Clinic - Same Day) Paroxysmal atrial fibrillation (CMS/HCC) Dyslipidemia Assessment/Plan Comments: Len is a pleasant but anxious 79-year-old patient of Dr. Murcia'keo who follows up today after successful PCI with CHRISTINA to proximal diagonal branch on 07/10/2020. He is on clopidogrel 75 mg daily. He continues to report stable angina provoked by walking uphill and high heart rates. He is clinically compensated. ECG today shows sinus bradycardia. Patient denies presyncope however does endorse some occasional positional lightheadedness. He wears an apple watch and reports a resting heart rate of 55 bpm. A significant amount of time was spent discussing the importance of listening to his body andnot pushing himself at this time. Patient will begin cardiac rehab in the near future where he can e xercise under supervision. With regard to paroxysmal atrial fibrillation, he denies any palpitations. Postop ECG showed sinus rhythm. He is anticoagulated with Eliquis. Denies signs of bleeding. Patient is on atorvastatin 20 mg daily as he was not able to tolerate 40 mg daily dosing. He brings with him today a letter from the [place] declining approval for Repatha. LDL 69 on 07/01/2020. Patient is encouraged to walk on flat surfaces, to proceed with cardiac rehab and continue current medications.He will follow-up with cardiology in 3 months time, sooner if he develops cardiovascular concerns. Electronically signed by MAEGAN Lucio 08/28/2020 8:31 AM documented in this encounter Plan of Treatment Upcoming Encounters Date Type Specialty Care Team Description 11/26/2020 Office Visit Cardiology Dianne Murcia MD [address] [address] [place] [address] (Wo rk) Scheduled Referrals Name Type Priority Associated Diagnoses Order S chedule XTRNL Referral to Outpatient Routine Status post Ordered: Cardiac Rehabilitation Referral angioplasty with 0 08/28/2020 stent Paroxysmal atrial fibrillation (CMS/HCC) Coronary artery disease of [place] artery of [place] heart with stable angina pectoris (CMS/HCC) documented as of this encounter Implants Implanted Type Area Scrip Clerk Device Shelf Model / Identifier Expiration Date Ser ial / Lot Stent Xience Milagros 2.25*12 - [id number] Stent N/A: Heart CALDERON [id number] / Implanted: Qty: 1 on 09/03/2019 at [facility] / [id number] Stent Xience Milagros 2.25*18 - [id number] Stent N/A: Heart CALDERON [id number] / Implanted: Qty: 1 on 09/03/2019 at [facility] / [id number] documented as of this encounter Procedures Procedure Name Priority Date/Time Associated Diagnosis Comme nts ECG 12-LEAD Routine 08/27/2020 4:09 PM Status post Results for this PDT angioplasty with stent proce dure are in the results section. documented in this encounter Results ECG 12 Lead (Clinic - Same Day) (08/27/2020 4:09 PM PDT) Specimen Narrative This result has an attachment that is no t available. documented in this encounter Visit Diagnoses Diagnosis Coronary artery disease of [place] artery of [place] heart with stable angina pectoris (CMS/HCC) - Primary Status post angioplasty with stent Postsurgical percutaneous transluminal c oronary angioplasty status Paroxysmal atrial fibrillation (CMS/HCC) Atrial fibrillation Dyslipidemia Other and unspecified hyperlipidemia documented in this encounter Insurance Payer Benefit Plan / Subscriber ID Effective Dates Phone Addre ss Type Group MEDICARE MEDICARE PART [id number] 2007-Gamaliel [phone] [address] [place] [address] STANDARD LIFE STANDARD LIFE [id number] 2016-Gamaliel [phone] [address] [address] [address] [place] [address] documented as of this encounter Advance Directives Documents on File Type Date Recorded Patient Administration Dean Explanati on Advance Directives and Living Will Latest Code Status on File Code Status Date Activated Date Inactivated Comments Full Code 09/03/2019 12:53 PM 09/04/2019 2:37 AM Care Teams Velvet Cutter Relationship Specialty Start Date End Date Shalom Ybarra MD PCP - General Family Medicine 10/02/20 [address] [place] [id number] documented as of this encounter
== END 2020-12-29 11:30 ==
LOC: CAR 10:30
PROVIDERS: PCP Internal Medicine; Referring Provider Internal Medicine; Visit Provider Internal Medicine Cardiovascular Disease
DX: Z95.5 Presence of coronary angioplasty implant and graft (principal)
CPT/HCPCS: 93798

== ENCOUNTER → 2021-01-09 11:14 | Outpatient (CLI) | payer MEDICARE, OTHER, SELFPAY ==
[2021-01-09 13:02] LABS: COVID-19 CEPHEID PCR (VTM/NP) Negative (Negative)
== END ==
PROVIDERS: PCP Internal Medicine; Visit Provider Physician Assistant
DX: Z20.822 Contact with and (suspected) exposure to COVID-19 (principal)
CPT/HCPCS: C9803; U0003

== ENCOUNTER → 2021-02-23 10:14 | Outpatient (CLI) | payer MEDICARE, OTHER, SELFPAY ==
[2021-02-23 17:23] LABS: COVID-19 CEPHEID PCR (VTM/NP) Negative (Negative)
== END ==
PROVIDERS: PCP Internal Medicine; Visit Provider Nurse Practitioner Family
DX: Z20.822 Contact with and (suspected) exposure to COVID-19 (principal)
CPT/HCPCS: C9803; U0003

== ENCOUNTER → 2021-03-11 08:48 | Outpatient (CLI) | payer MEDICARE, OTHER, SELFPAY ==
[2021-03-11 09:17] LABS: Add Manual Diff / Slide Review NO; Basophils Absolute Auto 100 /uL (0-100); Basophils Percent Auto 1.2 % (0-2); Eosinophils Absolute Auto 100 /uL (0-450); Eosinophils Percent Auto 2.7 % (2-4); Hemoglobin 13.8 g/dL (13.5-17.5); Lymphocytes Absolute Auto 1500 /uL (1100-4500); Lymphocytes Percent Auto 29.3 % (25-40); Mean Corpuscular HGB Conc 34.6 % (30-36); Mean Corpuscular Hemoglobin 31.3 PG (26-34); Mean Corpuscular Volume 90.4 fL (80-100); Monocytes Absolute Auto 500 /uL (0-900); Monocytes Percent Auto 9.2 % (3-14); Neutrophils Absolute Auto 3000 /uL (1500-7000); Neutrophils Percent Auto 57.6 % (50-75); Platelet Count 193 X10^3/uL (150-400); Red Blood Cell Count 4.42 X10^6/uL (4.5-5.9); Red Cell Distribution Width 12.7 % (11.6-14.8); White Blood Cell Count 5.2 X10^3/uL (4.5-11.0)
[2021-03-11 09:29] LABS: Alanine Aminotransferase 18 IU/L (<50); Albumin 3.8 g/dL (3.5-5.0); Albumin Globulin Ratio 1.5 (1.0-2.8); Alkaline Phosphatase 53 U/L (38-126); Aspartate Aminotransferase 23 IU/L (17-59); BUN Creatinine Ratio 13.1 (6-22); Bilirubin Total 1.1 mg/dL (0.2-1.3); Blood Urea Nitrogen 16 mg/dL (9-20); Calcium 9.3 mg/dL (8.4-10.2); Carbon Dioxide 27 mmol/L (22-32); Chloride 106 mmol/L (98-107); Cholesterol 118 mg/dL (140-199); Estimated Glomerular Filt Rate 57.4 mL/min (>60); Globulin 2.5 g/dL (1.7-4.1); Glucose 93 mg/dL (80-110); HDL Cholesterol 42 mg/dL (40-60); HEMOLYSIS < 15 (0-50); LDL Cholesterol Calculated 61 mg/dL (<100); Magnesium 2.1 mg/dL (1.6-2.3); Potassium 4.4 mmol/L (3.4-5.1); Sodium 137 mmol/L (137-145); Total Protein 6.3 g/dL (6.3-8.2); Triglycerides 77 mg/dL (35-150)
[2021-03-11 09:56] LABS: Thyroid Stimulating Hormone 1.49 uIU/mL (0.47-4.68)
== END ==
PROVIDERS: PCP Internal Medicine; Referring Provider Internal Medicine Cardiovascular Disease; Visit Provider Internal Medicine Cardiovascular Disease
DX: I25.10 Atherosclerotic heart disease of native coronary artery without angina pectoris (principal); I48.0 Paroxysmal atrial fibrillation; E78.6 Lipoprotein deficiency
CPT/HCPCS: 36415; 80053; 80061; 83735; 84443; 85025

== ENCOUNTER → 2021-04-21 14:43 | Outpatient (CLI) | payer MEDICARE, OTHER, SELFPAY ==
--- NOTE | 2021-04-21 | DI.ECHO.S_ITS ---
[facility] +---------+ : : [address] : [address] : : : : [id number] : : : : Phone: [phone]---------+ Echocardiogram Report + + :Name: CHRISTOPHER BETANCOURT Study Date: 04/21/2021 Height: 68 in : :[facility] ReadingLocation: Weight: 155 lb : : Gender: Male BSA: 1.8 m2 : :: 1940 Age: 80 yrs BP: 117/62 mmHg: :Reason For Study: ATRIAL FIBRILLATION : :Ordering Physician: ANTONIETA, : :ZACH Performed By: Marbella Torres : :Referring: ZACH FUNG : + + Interpretation Summary The left ventricle is normal in size and wall thickness. Left ventricular ejection fraction is estimated to be 55 +/- 5%. There has been no significant change in LVEF since the previous exam. The right ventricle is normal in size and function. No significant valvular pathology seen. The patient was in sinus bradycardia with heart rates between 45-57 bpm during the exam. Procedure: A two-dimensional transthoracic echocardiogram with color flow and Doppler was performed. The study quality was technically adequate. Comparison is made with the echocardiogram of 12/18/2019. The patient was in sinus bradycardia with heart rates between 45-57 bpm during the exam. Left Ventricle: The left ventricle is normal in size and wall thickness. There is no thrombus. Left ventricular ejection fraction is estimated to be 55 +/- 5%. There has been no significant change since the previous exam. No obvious regional wall motion abnormalities seen. MV E/A: 1.1 Med Peak E' Otis: 7.7 cm/sec E/E' med: 8.9. Right Ventricle: The right ventricle is normal in size and function. Atria: The left atrium is severely dilated. There has been no significant change since the previous study. Right atrial size is normal. The atrial septum is aneurysmal. No obvious PFO seen. Mitral Valve: The mitral valve leaflets appear mildly thickened, but open well. The mitral valve leaflets are mildly calcified. There is trace mitral regurgitation. Aortic Valve: The aortic valve is trileaflet. The aortic valve opens well. The aortic valve is slightly calcified. There is no aortic valve stenosis. No aortic regurgitation is present. Tricuspid Valve: There is mild tricuspid regurgitation. The right ventricular systolic pressure is estimated to be at least 30 mmHg based on an estimated right atrial pressure of 3 mm Hg. Pulmonic Valve: The pulmonic valve is not well seen, but is grossly normal. There is mild pulmonic regurgitation. Great Vessels: The aortic root is normal size. The ascending aorta could not be visualized. Mild atherosclerotic plaque(s) in the aortic arch. The IVC is of normal diameter and collapses greater than 50% with a sniff. This suggests a low right atrial pressure of 3 mm Hg. Pericardium/ Pleura There is no pericardial effusion. There is no pleural effusion. MMode/2D Measurements & Calculations LVIDd: 4.5 cm LVOT diam: 2.2 cm LVIDs: 3.4 cm Ao root diam: 3.2 cm FS: 25.6 % Ao Arch Diam (Prox Trans): 2.4 cm IVSd: 0.86 cm LVPWd: 0.80 cm LV babb. diameter/BSA (cm/m^2): 2.5 LV sys. diameter/BSA (cm/m^2): 1.8 LA A2 area: 26.6 cm2 RA long axis: 6.3 cm LA A4 area: 23.2 cm2 RA area: 17.6 cm2 LA length (vol): 5.8 cm RA vol: 42.0 ml LA vol: 89.8 ml RA : 22.9 ml/m2 LA vol index: 49.0 ml/m2 IVC diam: 2.0 cm RVD1 (basal): 3.7 cm TAPSE: 3.1 cm Doppler Measurements & Calculations Ao V2 max: 127.2 cm/sec LVOT Max Otis: 88.1 cm/sec Ao V2 mean: 90.5 cm/sec LV V1 max P.1 mmHg Ao max P.5 mmHg LV V1 VTI: 21.0 cm Ao mean P.6 mmHg NANCY(I,D): 2.5 cm2 Ao V2 VTI: 32.7 cm NANCY(V,D): 2.7 cm2 sev ratio: 0.64 NANCY indexed to BSA (cm^2/m^2): 1.4 MV E max otis: 67.9 cm/sec TR max otis: 258.0 cm/sec MV A max otis: 61.6 cm/sec TR max P.6 mmHg MV E/A: 1.1 PA V2 max: 103.8 cm/sec Med Peak E' Otis: 7.7 cm/sec PA V2 mean: 67.4 cm/sec E/E' med: 8.9 PA mean P.1 mmHg Lat Peak E' Otis: 12.0 cm/sec PA pr(Accel): 31.0 mmHg E/E' lat: 5.7 E/e' average: 7.3 MV dec time: 0.18 sec SV(LVOT): 81.8 ml Reading Physician:03:07 PM
== END ==
PROVIDERS: PCP Internal Medicine; Referring Provider Internal Medicine Cardiovascular Disease; Visit Provider Internal Medicine Cardiovascular Disease
DX: I07.1 Rheumatic tricuspid insufficiency (principal); I70.0 Atherosclerosis of aorta; I48.0 Paroxysmal atrial fibrillation
CPT/HCPCS: 93306

== ENCOUNTER → 2022-07-07 14:53 | Outpatient (CLI) | payer MEDICARE, OTHER, SELFPAY ==
[2022-07-07 15:36] LABS: Add Manual Diff / Slide Review NO; Basophils Absolute Auto 100 /uL (0-100); Basophils Percent Auto 0.9 % (0-2); Eosinophils Absolute Auto 0 /uL (0-450); Eosinophils Percent Auto 0.5 % (2-4); Hematocrit 40.1 % (41-53); Hemoglobin 14.1 g/dL (13.5-17.5); Lymphocytes Absolute Auto 1300 /uL (1100-4500); Lymphocytes Percent Auto 19.2 % (25-40); Mean Corpuscular HGB Conc 35.2 % (30-36); Mean Corpuscular Hemoglobin 32.3 PG (26-34); Mean Corpuscular Volume 91.8 fL (80-100); Monocytes Absolute Auto 600 /uL (0-900); Monocytes Percent Auto 9.1 % (3-14); Neutrophils Absolute Auto 4700 /uL (1500-7000); Neutrophils Percent Auto 70.3 % (50-75); Platelet Count 220 X10^3/uL (150-400); Red Blood Cell Count 4.36 X10^6/uL (4.5-5.9); Red Cell Distribution Width 12.3 % (11.6-14.8); White Blood Cell Count 6.7 X10^3/uL (4.5-11.0)
[2022-07-07 17:06] LABS: Alanine Aminotransferase 24 IU/L (<50); Albumin 3.9 g/dL (3.5-5.0); Albumin Globulin Ratio 1.5 (1.0-2.8); Alkaline Phosphatase 54 U/L (38-126); Aspartate Aminotransferase 27 IU/L (17-59); BUN Creatinine Ratio 15.1 (6-22); Bilirubin Total 0.9 mg/dL (0.2-1.3); Bilirubin Unconjugated 0.5 mg/dL (0.0-1.1); Blood Urea Nitrogen 19 mg/dL (9-20); Calcium 9.1 mg/dL (8.4-10.2); Carbon Dioxide 25 mmol/L (22-32); Chloride 103 mmol/L (98-107); Estimated Glomerular Filt Rate 58 mL/min (>60); Globulin 2.6 g/dL (1.7-4.1); Glucose 98 mg/dL (80-110); HEMOLYSIS < 15 (0-50); Lipase 148 U/L (23-300); Sodium 136 mmol/L (137-145); Total Protein 6.5 g/dL (6.3-8.2)
[2022-07-07 17:36] LABS: TSH w/ Reflex to FT4 1.36 uIU/mL (0.47-4.68)
== END ==
PROVIDERS: PCP Student in an Organized Health Care Education/Training Program; Referring Provider Student in an Organized Health Care Education/Training Program; Visit Provider Student in an Organized Health Care Education/Training Program
DX: R14.3 Flatulence (principal)
CPT/HCPCS: 36415; 80048; 80076; 83690; 84443; 85025

== ENCOUNTER → 2022-07-09 09:52 | Outpatient (CLI) | payer MEDICARE, OTHER, SELFPAY ==
[2022-07-12 13:34] LABS: H. Pylori Antigen Stool Negative (Negative)
== END ==
PROVIDERS: PCP Internal Medicine; Referring Provider Student in an Organized Health Care Education/Training Program; Visit Provider Student in an Organized Health Care Education/Training Program
DX: R14.3 Flatulence (principal); R10.33 Periumbilical pain
CPT/HCPCS: 87338

== ENCOUNTER → 2022-08-17 13:07 | Outpatient (CLI) | payer MEDICARE, OTHER, SELFPAY ==
--- NOTE | 2022-08-17 | DI.RAD.S_ITS ---
PROCEDURE: FL BARIUM SWALLOW INDICATIONS: BURPING, H/O ESOPHAGEAL STRICTURE COMPARISON: Located Within [facility], CT, CT ANGIO CHEST, 08/12/2021, 13:16[facility], RF, BARIUM SWALLOW, 02/28/2012, 10:11. FINDINGS: Function: There is abnormal esophageal peristalsis with multiple episodes of tertiary contractions resulting in delayed and retrograde flow of ingested oral contrast. No elicited gastroesophageal reflux. There is normal transit of a calibrated barium tablet through the esophagus into the stomach. Morphology: Air-contrast images demonstrate normal mucosal morphology. Single contrast views show no esophageal strictures, extrinsic mass effects, or diverticula. Limited images of the stomach demonstrate normal appearance. The small sliding hiatal hernia was noted during real-time imaging. IMPRESSION: Abnormal esophageal peristalsis with multiple episodes of tertiary contractions. No focal strictures identified. No gastroesophageal reflux elicited. Dictated by: Jose L Alexandre M.D. on 08/17/2022 at 21:10 Approved by: Jose L Alexandre M.D. on 08/17/2022 at 21:20
== END ==
PROVIDERS: PCP Internal Medicine; Referring Provider Internal Medicine; Visit Provider Internal Medicine
DX: R14.2 Eructation (principal); Z87.19 Personal history of other diseases of the digestive system; K44.9 Diaphragmatic hernia without obstruction or gangrene
CPT/HCPCS: 74220

== ENCOUNTER 2022-11-18 11:54 | Emergency (ER) | payer MEDICARE, OTHER, SELFPAY ==
[2022-11-18 11:59] VITALS: BP 127/62; PULSE 78; RESP 18; O2SAT 96; BMI 28.9
[2022-11-18 12:02] VITALS: TEMP 37.8
--- NOTE | 2022-11-18 12:56 | ED_ITS ---
HPI - URI/Sore Throat <Kat Lockwood PA-C - Last Filed: 11/18/22 14:00> General Chief Complaint: Upper Respiratory Symptoms Stated Complaint: COVID Time Seen by Provider: 11/18/22 12:06 Mode of arrival: Family Vehicle History of Present Illness HPI Narrative: Patient is an 82-year-old male who presents with fever and body aches, tested positive for COVID at home. He has had 3 vaccines against COVID and reports never having a COVID infection. He recently had a cardiac procedure involving 1 of his stents 2 weeks ago. 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 He takes his medication regularly. He took Tylenol several times yesterday for a fever but has not taken any today. He denies any chest pain, shortness of breath, nausea vomiting. He endorses generalized fatigue and body aches. He is accompanied by his daughter. Related Data Home Medications Medication Instructions Recorded Confirmed metoprolol tartrate 25 mg tablet 12.5 mg PO DAILY ##0 06/27/16 07/07/22 multivitamin 1 tab PO DAILY 10/06/17 07/07/22 atorvastatin 20 mg tablet 20 mg PO DAILY 12/07/17 07/07/22 coenzyme Q10 100 mg capsule 100 mg PO DAILY 12/07/17 07/07/22 apixaban 5 mg tablet (Eliquis) 5 mg PO BID 06/16/18 07/07/22 clopidogrel 75 mg tablet 75 mg PO DAILY 03/03/20 07/07/22 Allergies Allergy/AdvReac Type Severity Reaction Status Date / Time No Known Allergies Allergy Verified 07/07/22 14:22 Review of Systems <Kat Lockwood PA-C - Last Filed: 11/18/22 14:00> Review of Systems ROS Unobtainable: All systems reviewed & are unremarkable except as noted in HPI and below Patient History <Kat Lockwood PA-C - Last Filed: 11/18/22 14:00> Medical History Ankle pain 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 GERD (gastroesophageal reflux disease) H/O adenomatous polyp of colon Hernia of abdominal wall Mixed hyperlipidemia Paroxysmal atrial fibrillation Tinnitus Surgical History History of cataract extraction with lens replacement History of inguinal hernia repair, bilateral S/P coronary artery stent placement (~2017) S/P hernia repair (~2018) Family History Father Cancer Mother Stroke Grandfather Stroke Grandmother Breast cancer, stage 0 Social History marital status: household members: spouse Smoking Status: Never smoker alcohol intake: current substance use type: does not use Smoking Status: Never smoker alcohol intake frequency: 0-2 drinks per day Substance Use Type: does not use Exam <Kat Lockwood PA-C - Last Filed: 11/18/22 14:00> Narrative Exam Narrative: GENERAL: 82 year old patient appears stated age. Well-developed patient, in no distress. Appears anxious. NEURO: AOx3. HEAD: Atraumatic. Normocephalic. EYES: Pupils equal round and reactive. Extraocular motions intact. No scleral icterus. No injection or drainage. ENT: Nose without bleeding or purulent drainage. Airway patent. CARDIOVASCULAR: Distant heart sounds. Regular rate and rhythm without murmur. RESPIRATORY: Clear to auscultation. Breath sounds equal bilaterally. No wheezes, rales, or rhonchi. EXTREMITIES: No edema or joint tenderness. SKIN: No rash or erythema of visible areas Initial Vital Signs Initial Vital Signs: Vital Signs Pulse Rate 78 11/18/22 11:59 Respiratory Rate 18 11/18/22 11:59 Blood Pressure 127/62 11/18/22 11:59 Pulse Oximetry 96 11/18/22 11:59 Oxygen Delivery Method Room Air 11/18/22 11:59 <No Richter DO - Last Filed: 11/18/22 19:28> Initial Vital Signs Initial Vital Signs: Vital Signs Pulse Rate 78 11/18/22 11:59 Respiratory Rate 18 11/18/22 11:59 Blood Pressure 127/62 11/18/22 11:59 Pulse Oximetry 96 11/18/22 11:59 Oxygen Delivery Method Room Air 11/18/22 11:59 Course <Kat Lockwood PA-C - Last Filed: 11/18/22 14:00> Vital Signs Vital signs: Vital Signs - 8 hr 11/18/22 11:59 11/18/22 12:02 11/18/22 13:13 Temperature 100.0 F H Pulse Rate 78 77 Respiratory Rate 18 18 Blood Pressure 127/62 Pulse Oximetry 96 96 Oxygen Delivery Method Room Air Room Air <No Amy Richter DO - Last Filed: 11/18/22 19:28> Vital Signs Vital signs: Vital Signs - 8 hr 11/18/22 11:59 11/18/22 12:02 11/18/22 13:13 Temperature 100.0 F H Pulse Rate 78 77 Respiratory Rate 18 18 Blood Pressure 127/62 Pulse Oximetry 96 96 Oxygen Delivery Method Room Air Room Air MDM - URI/Sore Throat <Kat Lockwood PA-C - Last Filed: 11/18/22 14:00> MDM Narrative Medical decision making narrative: Multiple etiologies for patient's symptoms considered including, but not limited to: COVID infection, pneumonia, influenza. Patient is not ill-appearing, lung rivas clear bilaterally, oxygen saturation 99-100% on room air. He is not tachycardic and denies chest pain. Considered Paxlovid treatment; per up-to-date, not advised to change anticoagulant dose within 6 weeks of procedure, which would be necessary for Paxlovid prescription. Discussed with patient and his daughter, including risks and benefits of Paxlovid. He is at higher risk of severe disease given his age but has underlying known lung disease, no history of smoking. Patient and daughter in agreement that we will not pursue antiviral therapy. He will take Tylenol for fever, rest. Return precautions advised. Patient's symptoms improved over duration of stay with above-stated therapies. Findings and discharge diagnosis discussed with patient/family followed by verbalization of understanding Return precautions discussed with patient/family whom verbalize understanding of diagnosis and plan Discharge Plan Departure Patient Disposition: Home Clinical Impression: COVID-19 Instructions: DI for COVID-19 (Suspected or Confirmed ) Activity Restrictions/Additional Instructions: *You have been diagnosed with COVID infection. We discussed benefits and risks of antiviral treatment while you were in the emergency department today. Based on her your recent cardiac procedure in anticoagulants, we decided together that taking oral antiviral pills was not in your best interest. You should continue taking your prescribed anticoagulants while you have COVID. I suggest you take Tylenol, up to 3000 mg within 24 hours, for fever and body aches. Drink plenty of water and rest. You can buy an [id number] pulse oximeter to check your oxygen level. If it is less than 92% while you are resting, I would return to the emergency department for reassessment. If you have difficulty breathing, chest pain or other severe symptoms, please return at any time. *What to do: *Please continue to take your regular medications as directed. [ ] New medication prescriptions sent to your pharmacy: [ ] [ ] New medication written as a paper prescription [x ] No new medications given *Please follow up with your primary care provider in 2-3 days, call for an appointment. Let them know you were seen in the Emergency Department and that we ask that you be seen in follow up. We will electronically transmit a record of today's note if your PCP is in our system *If you do not have a primary care provider please contact [facility] Resource line at [phone]. They will ask some questions about your medical history and help get you set up with a doctor in the community. *Return to Emergency Department if you should have any new, worsening or concerning symptoms, such as [fever greater than 101 F, shaking chills, worsening pain, persistent vomiting or other concerning symptoms]. Prescriptions: No Action Eliquis 5 mg tablet 5 mg PO BID metoprolol tartrate 25 MG tablet 12.5 mg PO DAILY Qty: 0 clopidogrel 75 mg tablet 75 mg PO DAILY atorvastatin 20 mg tablet 20 mg PO DAILY coenzyme Q10 100 mg capsule 100 mg PO DAILY multivitamin 1 tab PO DAILY Referrals: Rosalio Tanner MD [Primary Care Provider] - Stand Alone Forms: Patient Portal/API <No Richter DO - Last Filed: 11/18/22 19:28> Cosign ED Attending Cospamelaature Attestation: I was immediately available in the department for consultation. Documentation has been reviewed.
[2022-11-18 13:13] VITALS: PULSE 77; RESP 18; O2SAT 96
== END 2022-11-18 13:13 | disposition home or self-care (01) ==
PROVIDERS: Emergency Provider Physician Assistant; PCP Internal Medicine
DX: U07.1 COVID-19 (principal)
CPT/HCPCS: 99281

== ENCOUNTER 2023-04-14 10:15 | Outpatient (RCR) | payer MEDICARE, OTHER, SELFPAY ==
--- OUTSIDE RECORDS SUMMARY | 2023-02-11 14:43 | XMS_ITS | Referral Summary ---
Author Name Unknown Organization [employer] [facility] Address [address] [place] [address] Care Team Providers Care Short Order Cook Name Role Phone Rosalio Tanner Primary Care Provider Reason for Referral * (Routine) - Authorized Specialty Diagnoses / Procedures Referred By Joan lim Referred To Contact Cardiac Rehabilitation Diagnoses Hx of coronary angioplasty Dianen Murcia MD [address] [place] [address] [address] [place] [address] [facility] [address] [place] [id number] Referral ID Status Reason Start Date Expiration Date V isits Requested Visits Authorized [id number] Authorized 12/07/2022 12/02/2023 1 1 * Durable Medical Equipment (Routine) - Authorized Specialty Diagnoses / Procedures Referred By Joan lim Referred To Contact Cardiology Diagnoses Palpitations Procedures Monitor - 14 Day Placed During Visit Mila Grant ARNP [address] [place] [address] [address] [place] [address] [facility] [address] [place] [address], [address] [place] [address] Referral ID Status Reason Start Date Expiration Date V isits Requested Visits Authorized [id number] Authorized 12/07/2022 12/02/2023 1 1 Reason for Visit * Reason Comments Follow-up Coronary Artery Disease Encounter Details Date Type Department Care Team Description 12/07/2022 9:20 AM PDT Office Visit [facility] Cardiology [address], [place] [address] Mila Grant ARNP [address] [place] [address] [address] [place] [address] Palpitations (Primary Dx); Hx of coronary angioplasty; 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) Allergies Active Allergy Reactions Criticality Noted Date Comments No Known Allergies 10/14/2016 documented as of this encounter (statuses as of 12/07/2022) Medications Medication Sig Dispensed Refills Start Date End Date Status coenzyme Q10 100 mg capsule Take 100 mg by mouth daily 0 Active MULTIVITAMIN ORAL Take 1 tablet by mouth daily 0 Active apixaban (ELIQUIS) 5 mg tablet Take 1 tablet (5 mg total) by mouth 2 (two) times a day 180 tablet 3 07/03/2020 Active clopidogreL (PLAVIX) 75 mg tablet Take 1 tablet (75 mg total) by mouth daily 0 Active cholecalciferol, vitamin D3, 50 mcg (2,000 unit) capsule Take 50 mcg by mouth daily 0 Active atorvastatin (LIPITOR) 20 mg tablet Take 1 tablet (20 mg total) by mouth daily Take 1 tablet by mouth once every evening for high cholesterol. 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 07/05/2017 Palpitations 07/05/2017 Dizziness 07/05/2017 SVT (supraventricular tachycardia) 07/05/2017 Tinnitus of both ears 07/05/2017 Dyslipidemia 07/05/2017 Low HDL (under 40) 07/05/2017 documented as of this encounter (statuses as of 12/07/2022) Immunizations Name Administration Dates Next Due Moderna SARS-CoV-2 Vaccine Monovalent 05/12/2020 ,04/14/2020 documented as of this encounter Social History Tobacco Use Types Packs/Day Years Used Date Smoking Tobacco: Never Smokeless Tobacco: Never Tobacco Cessation:Counseling Given: Not Answered Alcohol Use Standard Drinks/Week Comments No 0 (1 standard drink = 0.6 oz pure alcohol) Stopped nightly wine 6 months ago Sex and Gender Information Value Date Recorded Sex Assigned at Male 04/10/2021 10:28 AM PST Gender Identity Not on file Sexual Orientation Not on file Job Start Date Occupation Industry Not on file Not on file Not on file documented as of this encounter Last Filed Vital Signs Vital Sign Reading Time Taken Comments Blood Pressure 106/48 12/07/2022 9:12 AM PDT Pulse 84 12/07/2022 9:12 AM PDT Temperature - - Respiratory Rate - - Oxygen Saturation - - Inhaled Oxygen Concentration - - Weight 73.6 kg (162 lb 3.2 oz) 12/07/2022 9:12 A M PDT Height 172.7 cm (5' 7.99) 12/07/2022 9:12 AM PD T Body Mass Index 24.67 12/07/2022 9:12 AM PDT documented in this encounter Progress Notes * MAEGAN Villa - 12/07/2022 9:20 AM PDT Plan: 2 week heart monitor Cardiac rehab Have your urologist reach out to Dr. Fuentes regarding when it is safe to perform the procedure. Follow up with Dr. Murcia in 3 months. Continue current medications * Mila Grant, [facility] - 12/07/2022 9:20 AM PDT Subjective Patient ID: Len Bennett is a 82 y.o. male that had concerns including Follow-up and Coronary Artery Disease. HPI: 82 y/o male with a PMH of accelerating angina/unstable angina, who underwent drug-coated stent placement to the mid circumflex, third obtuse marginal branch in June 24 and drug-coated stent placement to the proximal RCA in June 28, 2016, accelerating angina, status post left heart catheterizationJun2019 which showed tight mid LAD disease status post drug-coated stent placement to the midLAD, patent previous RCA and OM stent, Recurrence and angina, s/p CHRISTINA to first diagonal branch by Dr. Fuentes, last heart catheterization by Dr. Fuentes in February 2021, that time 80% apical LAD and 70% stenosis of first diagonal branch, subsequently drug-coated stent placement to the distal LADand proximal first diagonal branch, A. fib ablation in August 19, [address] Claire LV ejection fraction 60 to 65% significant bilateral tinnitus, Progressive angina s/p LHC and PTCA to 90% distal LAD blockage by Dr. Fuentes 11/05/22, hearing aid, history of reflux problem, who comes in today for follow up. He had COVID at the beginning of November. Since then he has been weak and tired. He has started walking with his walking group again and is walking 3x per week for 2 miles. He is walking slower than normal and with no hills. Palpitations: For multiple months when he is walking he feels a thump and then palpitations and HR goes up into 120s-130s. He will have associated lightheaded and dizziness. Feels different than afibepisodes in the past. [employer] says sinus. CAD: Denies anginal symptoms since recent intervention, but he also has not pushed it with activity. He continues on Plavix 75 mg daily HTN: 115/60 at home Hx of AF: s/p AF ablation [address] Claire. Continues on eliquis 5 mg BID, metoprolol XL 12.5 mg daily. Denies s/s of bleeding. HLD: He is taking atorvastatin 20 mg. Myalgias on 40 mg of atorvastatin in the past. Past cardiac Hx: In August 12, 2016 patient was seen by video tape duplicator as he developed blind spot in the right eye. 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 Patient was suggested to have carotid ultrasound. Patient had ESR CRP CBC and according to the patient he was told they were normal. I do not have that report. There was small flame retinal hemorrhagenasal to disc and was advised to control cardiovascular risk factors. Patient underwent carotid Doppler and repeat Holter monitor. In September 01, 2016, had Holter monitor for 7 days and 5 hours. Predominant rhythm was sinus with average heart rate 67, minimum 40 during sleep, maximum 148 bpm. No symptoms were reported. Overall PACs and PVCs burden were less than 1%. Patient had one 6 beats run of nonsustained ventricular tachycardia rate about 133 bpm. Carotid Doppler in August 31, 2016 did not reveal any significant carotid artery disease. In June 24, 2016 patient underwent drug-coated stent placement to the mid circumflex and third OM branch. Subsequently on June 28, 2016 and underwent PCI with drug-coated stent placement to the proximal RCA. LV ejection fraction was 65% on left ventriculography. LAD has about 30% proximal and middisease and about 20% distal disease. In June 22, 2017 patient had exercise perfusion study. He walked on [place] protocol for 9 minutes and 31 seconds with functional aerobic impairment -40%. No ischemic EKG changes. Patient had A. fib episodes. Stress LV ejection fraction 68%. There was small area of inferior apical defect. Patient was advised to be started on anticoagulation but he refused. Subsequently patient had Holter monitor for about 1 week started December 23, 2017. Predominant rhythm was sinus with average heart rate 65 minimum 43 maximum 147. Read PVCs and occasional PACs. No obvious A. fib or ventricular tachycardia seen. On December 27, 2017 at about 10:30 8 AM he was exercising. Colman chest pressure. That time had sinus tachycardia rate about [address]-T changes. On December 26, 2017 at about 8: 12 AM patient was walking uphill and felt chest pressure,that time sinus tachycardia rate 122 and some PACs. Recurrence of angina status post left heart catheterization in September 04, 2019:CONCLUSION: 1. Severe mid left anterior descending artery stenosis. This was successfully treated with 2 drug-eluting stents. 2. Patent circumflex and right coronary artery stents. 3. Estimated left ventricular ejection fraction 60-65%. 4. LVEDP is 17 mmHg. ECHO: 12/18/2019: LVEF 55 to 60%, no significant valvular pathology, no significant diastolic dysfunction, normal atrial size and PFO cannot be ruled out. Event monitor for 1 month started December 19, 2019: 5 patient's clinic episode with rhythm sinus rate 52-108 bpm and some PACs and atrial couplets. Patient had recurrence of angina and has been evaluated at [facility]. In June 2020 underwent 2.5 x 15 mm resolute [place] CHRISTINA to the occluded first diagonal branch by Dr. Fuentes, a repeat [employer]AD [employer]ER[employer] TECH, subsequent another 2.5 x 15 mm Synergy CHRISTINA deployed distal to pre-existing diagonal stent, r ecurrence of angina and underwent repeat left heart catheterization in 02/24/2021 which showed 80% apical LAD and 70% stenosis in the proximal first diagonal, 60% ostial ramus, no significant diseaseof circumflex OM or left main, subsequently underwent 2.5 x 32 mm Synergy CHRISTINA to distal LAD and 3 x12 mm Synergy CHRISTINA to proximal first diagonal by Dr. Fuentes on 02/24/2021. In 12/22/2020 proximal RCA stent was patent. August 19, 2021: Underwent A. fib ablation by Dr. Claire. 11/08/2022 LHC: Distal LAD 90% tubular ISR status PTCA only with a [place] 2.5x15mm cutting balloon for 2 min reducing lesion to 0%, SHANE 3 flow, and good angiographic results. Large D1 with proximal 30-40% diffuse ISR. Patent proximal and mid LAD stents. Patent proximal and distal RCA stents. Patent mid and distal LCX stents. EKG: June 30, 2022: Sinus rhythm with left axis, likely old inferior wall TX, low voltage complexes in limb leads, QTc 4 1 5 ms. 12/15/2021:Sinus bradycardia rate 54, old inferior wall TX, low voltage complexes in limb leads, [id number] ms LABS: 11/05/2022: WBC 6.56, RBC 4.27, hemoglobin 13.8, hematocrit 38, platelet 173, sodium 137, potassium 4.1, chloride 106, BUN 25, creatinine 1.26 11/03/2022: Sodium 133, potassium 4.5, creatinine 1.19, BUN 22, glucose 96, chloride 102, total cholesterol 133, triglycerides 70, HDL 52, LDL 68, hemoglobin A1c 5.0, TSH 1.42, WBC 5.77, hematocrit 39.3, platelet 185 07/07/2022: WBC 6.7, RBC 4.36, hemoglobin 14.1, hematocrit 40.1, platelet 220, sodium 136, potassium5.0, chloride 103, BUN 19, creatinine 1.26, calcium 9.1, glucose 98, AST 27, ALT 24, TSH 1.36 August 28, 2021: BUN 24, creatinine 1.28, sodium 135, potassium 4.2, normal AST, ALT, total cholesterol 131, triglyceride 42, HDL 49, LDL 68, TSH 1.75, hemoglobin A1c 4.9, platelets 193, hematocrit 38.2 08/17/2021:Sodium 139, potassium 4.2, BUN 26.4, creatinine 1.26, hemoglobin 13.6, platelets 186. 02/24/2021: At [facility]: Sodium 139, potassium 4.3, BUN 21, creatinine 1.26, hemoglobin 14.4, platelets 193 07/01/2020: Homocystine 11.9 within normal limit, lipoprotein a 62.8 within normal limit, LDL particle 747, LDL cholesterol 69, HDL 47, triglyceride 80, total cholesterol 132 October 26, 2019: Sodium 139, potassium 4.5, BUN 22, creatinine 1.07, magnesium 2.2, normal AST, ALT, normal troponin, hemoglobin 13.3 platelets 193. September 03, 2019: TCH 136, HDL 50, LDL 66, triglyceride 51 In April 20, 2018 sodium 139, potassium 4.9, BUN 21, creatinine 1.1, normal AST 80, [id number], total cholesterol 139 HDL 49, LDL 75 September 27/2018 triglyceride 95, total cholesterol 177, HDL 51, LDL 107. In June 25, 2016, triglyceride 130, total cholesterol 171, LDL 110, HDL 35. In June 29, 2016 hemoglobin 14.1, platelets 222 more sodium 138, potassium 4.1, BUN 18, creatinine 0.9. Magnesium 2.1, normal AST ALT. Serial troponins normal. TSH 2.88. In July 15, 2015 TSH 1.29 BUN 19, creatinine 1.2, magnesium 2.2, sodium 139, potassium 4.4, normal LFT, hemoglobin 15.1, platelets 232 In June 21, 2017 total cholesterol 130, triglycerides 59, HDL 50, LDL 68. Past Medical History: Diagnosis Date ??? Arrhythmia PAF ??? Basal cell carcinoma ??? Chest pain ??? Coronary artery disease ??? Dizziness ??? Hyperlipidemia ??? Squamous cell carcinoma of skin of face Past Surgical History: Procedure Laterality Date ??? CARDIAC CATHETERIZATION 06/28 stentsx3 (has 9 stents total) ??? INGUINAL HERNIA REPAIR Left 2018 ??? MOHS SURGERY 08/12/2015 Family History Problem Relation Age of Onset ??? Stroke Other Social History Socioeconomic History ??? Marital status: Tobacco Use ??? Smoking status: Never ??? Smokeless tobacco: Never Substance and Sexual Activity ??? Alcohol use: No Comment: Stopped nightly wine 6 months ago ??? Drug use: No ??? Sexual activity: Defer Allergies Allergen Reactions ??? No Known Allergies Current Medication List Sig apixaban (ELIQUIS) 5 mg tablet Take 1 tablet (5 mg total) by mouth 2 (two) times a day atorvastatin (LIPITOR) 20 mg tablet Take 1 tablet (20 mg total) by mouth daily Take 1 tablet by mouth once every evening for high cholesterol. cholecalciferol, vitamin D3, 50 mcg (2,000 unit) capsule Take 50 mcg by mouth daily clopidogreL (PLAVIX) 75 mg tablet Take 1 tablet (75 mg total) by mouth daily coenzyme Q10 100 mg capsule Take 100 mg by mouth daily metoprolol succinate XL (TOPROL-XL) 25 mg 24 hr tablet Take 0.5 tablets (12.5 mg total) by mouth daily MULTIVITAMIN ORAL Take 1 tablet by mouth daily Review of Systems Constitutional: Negative for fatigue, fever and unexpected weight change. Eyes: Negative for itching and visual disturbance. Respiratory: Positive for shortness of breath. Negative for cough, chest tightness and wheezing. Cardiovascular: Positive for palpitations. Negative for chest pain and leg swelling. Gastrointestinal: Negative for blood in stool. Endocrine: Negative for polydipsia. Genitourinary: Negative for hematuria. Skin: Negative for rash. Neurological: Positive for dizziness and light-headedness. Negative for syncope and weakness. Hematological: Does not bruise/bleed easily. Psychiatric/Behavioral: The patient is not nervous/anxious. All other systems reviewed and are negative. Objective BP (!) 106/48 (BP Location: Left arm, Patient Position: Sitting) Pulse 84 Ht 1.727 m Wt 73.6 kg BMI 24.67 kg/m?? Physical Exam: Constitutional * Nourishment - overweight. Eyes Comments No xanthelasma, no arcus senilis Eyes Normal Lids/external - Right: Normal, Left: Normal. Sclera - Right: Normal, Left: Normal. Nasopharynx Comments No cyanosis Neck Exam Comments No obvious JVD. Neck Exam Normal Inspection - Normal. Respiratory Comments No crepitation, no rhonchi Respiratory Normal Auscultation - Normal. Percussion - Normal. Effort - Normal. Cardiovascular * Heart rate -irregular Cardiovascular Comments No S3 no S4 Cardiovascular Normal Inspection - JVD: Absent. Rhythm -Regular heart sounds - S1 Normal Normal S2.Murmurs - None. Extremities - No edema. Vascular Normal Pulses - Carotids: Normal, Femoral: Normal. Bruits - Carotids: Absent, Abdominal, mid: Absent, Femoral: Absent. Abdomen Normal No hepatic enlargement. No splenic enlargement. Extremity Normal No Edema. Neurological Comments No obvious motor or sensory deficit Neurological Normal Level of consciousness - Normal. Orientation - Normal. Psychiatric Normal Orientation - Oriented to time, place, person & situation. 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) Assessment/Plan Comments: Patient had progressive angina for which he had a left heart cath done by Dr. Fuentes at 11/08/2022. PTCA of distal LAD 90% tubular stenosis with good angiographic results. Post intervention, the patient went on a trip to [place] and when he was at elevation he experienced palpitations, lightheadedness, dizziness, shortness of breath. A few days later he came down with COVID-19. He has since recovered, but is still feeling weak and fatigued. He is back to walking but at a slower rate. He deniesangina but has not pushed it physically. He reports that palpitations preceded his recent coronary intervention. Per pt, they feel different than past A-fib episodes, and his watch shows sinus tachyca rdia. Recent labs show normal TSH, electrolytes. No recent magnesium. We will further evaluate witha 2-week heart monitor. He does have a history of atrial fibrillation and an ablation by Dr. Claire in 2021 for which he is treated with metoprolol XL 12.5 mg daily and Eliquis 5 mg twice daily. I have also referred him to cardiac rehab at . Continue current medications. Plan to continue Plavix 75mg daily for at least 12 months, but consider long-term for secondary prevention. He is on atorvastatin 20 mg as he did not tolerate 40 mg d/t myalgias. Recent LDL 68. The patient reports that urology wants to do a procedure due to a stone. This will likely need to be put off as he had a recent intervention, but I have asked that they reach out to Dr. Fuentes's office for specific guidelines. Per Dr. Fuentes's note, plan for ischemic guided intervention of ISR of D1 if symptoms persist and ischemia is demonstrated in noninvasive testing. Follow-up with Dr. Murcia in 3 months. In the interim, if patient develops worsening of cardiovascular symptoms, advised to call us. Electronically signed by MAEGAN Villa 12/07/2022 10:16 AM documented in this encounter Plan of Treatment Upcoming Encounters Date Type Department Care Team Description 03/08/2023 9:30 AM PST Office Visit [facility] Cardiology [address], [place] [id number] Dianne Murcia MD [address] [place] [address] [place] [id number] Scheduled Orders Name Type Priority Associated Diagnoses Orde r Schedule Monitor - 14 Day Placed During Visit Cardiac Services Routine Palpitations 1 Occurrences starting 12/07/2022 until 12/07/2024 Scheduled Referrals Name Type Priority Associated Diagnoses Order Schedule XTRNL Referral to Cardiac Rehabilitation Outpatient Referral Routine Hx of coronary angioplasty Ordered: 12/07/2022 documented as of this encounter Medical Devices Implanted Type Area Philosophy Specialist Device Identifier Shelf Expiration Date Model / Serial / Lot Stent Xience Milagros 2.25*18 - [id number] Implanted:Qty: 1 on 09/03/2019 at [facility] Stent N/A: Heart [employer]DER[employer] [id number] documented as of this encounter Visit Diagnoses Diagnosis Palpitations- Primary Hx of coronary angioplasty 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) Atrial fibrillation documented in this encounter Advance Directives Latest Code Status on File Code Status Date Activated Date Inactivated Comments Full Code 08/19/2021 11:13 AM 08/20/2021 2:36 AM Code Status History Code Status Date Activated Date Inactivated Comments Full Code 09/03/2019 12:53 PM 09/04/2019 2:37 AM Care Teams Short Order Cook Relationship Specialty Start Date End Date Rosalio Tanner [address] [place] [address] PCP - General Internal Medicine 12/07/22 documented as of this encounter
== END 2023-04-14 12:15 ==
LOC: CAR 10:15
PROVIDERS: PCP Internal Medicine; Referring Provider Nurse Practitioner Family; Visit Provider Internal Medicine Cardiovascular Disease
DX: Z98.61 Coronary angioplasty status (principal)
CPT/HCPCS: 93798

== ENCOUNTER → 2023-06-16 10:44 | Outpatient (CLI) | payer MEDICARE, OTHER, SELFPAY ==
--- NOTE | 2023-06-16 10:46 | DI.RAD.S_ITS ---
PROCEDURE: XR ACUTE ABDOMEN SERIES INDICATIONS: abd pain TECHNIQUE: One view chest and two views of the abdomen were acquired. COMPARISON: [facility], CT, CT ANGIO CHEST, 08/12/2021, 13:16. FINDINGS: Surgical changes and devices: Surgical clips in the pelvis. Hyperdensity which projects over the lower midline sacrum measuring 1.6 cm. Chest: Lungs are clear. Heart size is normal. No pleural effusions. No pneumoperitoneum. Abdomen: Bowel gas pattern is normal. No suspicious calcifications. Visualized solid organ contours appear normal. Above average colonic stool burden in the ascending colon and hepatic flexure. No radiographic evidence of pneumoperitoneum. Bones: No suspicious bony lesions. Degenerative changes with slight levoconvex curvature centered at L3-L4. IMPRESSION: 1. No acute abnormality. 2. Above average colonic stool burden in the ascending colon and hepatic flexure which may correlate with constipation. 3. Hyperdensity which projects over the midline lower sacrum which may represent postsurgical change. Dictated by: Marco A Pisano M.D. on 06/16/2023 at 15:52 Approved by: Marco A Pisano M.D. on 06/16/2023 at 16:03
[2023-06-16 11:51] LABS: Add Manual Diff / Slide Review NO; Basophils Absolute Auto 100 /uL (0-100); Basophils Percent Auto 1.3 % (0-2); Eosinophils Absolute Auto 100 /uL (0-450); Eosinophils Percent Auto 1.2 % (2-4); Hematocrit 39.4 % (41-53); Hemoglobin 13.7 g/dL (13.5-17.5); Lymphocytes Absolute Auto 1300 /uL (1100-4500); Lymphocytes Percent Auto 19.9 % (25-40); Mean Corpuscular HGB Conc 34.9 % (30-36); Mean Corpuscular Hemoglobin 32.4 PG (26-34); Mean Corpuscular Volume 92.8 fL (80-100); Monocytes Absolute Auto 800 /uL (0-900); Monocytes Percent Auto 12.4 % (3-14); Neutrophils Absolute Auto 4200 /uL (1500-7000); Neutrophils Percent Auto 65.2 % (50-75); Platelet Count 214 X10^3/uL (150-400); Red Blood Cell Count 4.24 X10^6/uL (4.5-5.9); Red Cell Distribution Width 12.8 % (11.6-14.8); White Blood Cell Count 6.4 X10^3/uL (4.5-11.0)
[2023-06-16 12:48] LABS: Alanine Aminotransferase 23 IU/L (<50); Albumin 3.7 g/dL (3.5-5.0); Albumin Globulin Ratio 1.3 (1.0-2.8); Alkaline Phosphatase 56 U/L (38-126); Aspartate Aminotransferase 28 IU/L (17-59); BUN Creatinine Ratio 21.9 (6-22); Blood Urea Nitrogen 28 mg/dL (9-20); Calcium 9.4 mg/dL (8.4-10.2); Carbon Dioxide 26 mmol/L (22-32); Chloride 106 mmol/L (98-107); Estimated Glomerular Filt Rate 57 mL/min (>60); Globulin 2.8 g/dL (1.7-4.1); Glucose 77 mg/dL (80-110); HEMOLYSIS < 15 (0-50); Lipase 218 U/L (23-300); Potassium 4.5 mmol/L (3.4-5.1); Sodium 135 mmol/L (137-145); Total Protein 6.5 g/dL (6.3-8.2)
== END ==
PROVIDERS: PCP Internal Medicine; Referring Provider Internal Medicine; Visit Provider Internal Medicine
DX: R10.9 Unspecified abdominal pain (principal)
CPT/HCPCS: 36415; 74022; 80053; 83690; 85025

== ENCOUNTER → 2023-06-19 09:21 | Outpatient (CLI) | payer MEDICARE, OTHER, SELFPAY ==
--- NOTE | 2023-06-19 09:23 | DI.CT.S_ITS ---
PROCEDURE: CT ABDOMEN PELVIS W CON INDICATIONS: abdominal pain/pelvic pain TECHNIQUE: After the administration of intravenous contrast, axial sections acquired from the lung bases to the pubic symphysis. Coronal and sagittal reformats were performed. For radiation dose reduction, the following was used: automated exposure control, adjustment of mA and/or kV according to patient size. COMPARISON: None. FINDINGS: Image quality: Diagnostic. Lower Chest: Coronary vessel calcifications. ABDOMEN: Liver: No solid mass. Multiple subcentimeter hypodensities in the liver which are too small to characterize (for example, 2/18). Gallbladder: Cholelithiasis with no wall thickening or pericholecystic fluid. Biliary ducts: No biliary dilation. Pancreas: No ductal dilation. Spleen: Size is within normal limits. Adrenal Glands: No adrenal nodules. Kidneys and Ureters: No hydronephrosis. No solid mass. No complex renal cystic lesion which requires follow up. Stomach and Bowel: Stomach is decompressed, limiting evaluation, but appears grossly normal. Small and large bowel is normal in caliber, without obstruction. Colonic diverticulosis, without diverticulitis. Above average colonic stool burden, notably in the ascending colon and hepatic flexure. Peritoneum: No abnormal intraperitoneal fluid. No free air. Ventral Wall: Small fat containing umbilical hernia. Abdominal Nodes: No retroperitoneal or mesenteric adenopathy by size criteria. Vessels: Aorta and inferior vena cava are normal in size. Mild calcification of the abdominal aorta. Proximal mesenteric vessels are patent. Patent portal, splenic and bilateral renal veins. Main portal vein measures 1.3 cm. A few gastric and perisplenic venous collaterals in the left upper quadrant as well as a gastrorenal shunt (2/14, 16, 6/32) PELVIS: Pelvic Organs: Marked prostatomegaly with multiple clips. Bladder: Large stone in the bladder measuring 1.9 x 1.5 cm (2/68). Circumferential bladder wall thickening, accounting for under distention. Pelvic Nodes: No enlarged lymph nodes. Miscellaneous: No inguinal hernias are seen. Bones: No aggressive osseous abnormality. No acute fractures. Mild multilevel degenerative changes of the spine. IMPRESSION: 1. Large stone in the bladder measuring 1.9 x 1.5 cm. Correlate with urine analysis and culture. Recommend Urology consultation. 2. Bladder wall thickening in the setting of marked prostatomegaly is suggestive of chronic bladder outlet obstruction. 3. Cholelithiasis without acute cholecystitis. 4. A few gastric and perisplenic venous collaterals as well as a gastrorenal shunt in the left upper quadrant which are nonspecific and may be seen in the setting of portal hypertension. Main portal vein is patent measuring 1.3 cm. No splenomegaly. Dictated by: Marco A Pisano M.D. on 06/19/2023 at 13:09 Approved by: Marco A Pisano M.D. on 06/19/2023 at 13:18
== END ==
PROVIDERS: PCP Internal Medicine; Referring Provider Internal Medicine; Visit Provider Internal Medicine
DX: K80.20 Calculus of gallbladder without cholecystitis without obstruction (principal); K57.30 Diverticulosis of large intestine without perforation or abscess without bleeding; K42.9 Umbilical hernia without obstruction or gangrene; I70.0 Atherosclerosis of aorta; N21.0 Calculus in bladder; R10.9 Unspecified abdominal pain; R10.2 Pelvic and perineal pain
CPT/HCPCS: 74177; Q9967

== ENCOUNTER 2023-08-27 07:43 | Emergency (ER) | payer MEDICARE, OTHER, SELFPAY ==
[2023-08-27] VITALS (12 sets, daily range): BP systolic 128–152; BP diastolic 60–69; PULSE 79–112; RESP 16–18; TEMP 36.6; O2SAT 95–100; BMI 23.4
--- NOTE | 2023-08-27 07:53 | DI.RAD.S_ITS ---
PROCEDURE: XR KUB INDICATIONS: CONSTIPATION TECHNIQUE: One view of the abdomen acquired. COMPARISON: [facility], CR, XR ACUTE ABDOMEN SERIES, 06/16/2023, 10:52. FINDINGS: Surgical changes and devices: Clips in the lower pelvis Bowel: Large fecal loading. Bowel gas pattern is not specific for obstruction. Soft tissues: No suspicious calcifications Bones: Degenerative changes IMPRESSION: Large fecal loading. If there is high concern for acute abdomen, consider CT. Dictated by: Cal Ulrich M.D. on 08/27/2023 at 8:50 Approved by: Cal Ulrich M.D. on 08/27/2023 at 8:51
--- NOTE | 2023-08-27 07:57 | ED.GENADULT ---
HPI - General Adult General Chief complaint: Abdominal Pain Stated complaint: constipated fever Time Seen by Provider: 08/27/23 07:45 History of Present Illness HPI narrative: 82 year old male presents by private vehicle from home for several days of general malaise, constipation, reported fever last night. Patient had bladder stone removal on 08/14 and since then has had ongoing issues with constipation. He has been taking stool softeners but has been unable to pass a solid bowel movement. 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 Related Data Home Medications Medication Instructions Recorded Confirmed metoprolol tartrate 25 mg tablet 12.5 mg PO DAILY ##0 06/27/16 06/16/23 multivitamin 1 tab PO DAILY 10/06/17 06/16/23 atorvastatin 20 mg tablet 20 mg PO DAILY 12/07/17 06/16/23 coenzyme Q10 100 mg capsule 100 mg PO DAILY 12/07/17 06/16/23 apixaban 5 mg tablet (Eliquis) 5 mg PO BID 06/16/18 06/16/23 clopidogrel 75 mg tablet 75 mg PO DAILY 03/03/20 06/16/23 Previous Rx's Medication Instructions Recorded cefpodoxime 200 mg tablet 200 mg PO Q12H #20 tabs 08/27/23 Allergies Allergy/AdvReac Type Severity Reaction Status Date / Time No Known Allergies Allergy Verified 08/27/23 08:00 Patient History Medical History Bladder stone SVT (supraventricular tachycardia) (07/05/17) Diverticular disease of colon Tinnitus Paroxysmal atrial fibrillation H/O adenomatous polyp of colon Mixed hyperlipidemia Coronary artery disease 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 Ankle pain GERD (gastroesophageal reflux disease) Hernia of abdominal wall Surgical History S/P urological surgery (~2018) S/P hernia repair (~2017) S/P coronary artery stent placement (~2016) History of inguinal hernia repair, bilateral History of cataract extraction with lens replacement Family History Father Cancer Mother Stroke Grandfather Stroke Grandmother Breast cancer, stage 0 Social History marital status: household members: spouse Smoking Status: Never smoker alcohol intake: current substance use type: does not use Smoking Status: Never smoker alcohol intake frequency: 0-2 drinks per day Substance Use Type: does not use Exam Initial Vital Signs Initial Vital Signs: Vital Signs Temperature 97.9 F 08/27/23 07:43 Pulse Rate 89 08/27/23 07:43 Respiratory Rate 16 08/27/23 07:43 Blood Pressure 150/69 H 08/27/23 07:43 Pulse Oximetry 98 08/27/23 07:43 Oxygen Delivery Method Room Air 08/27/23 07:43 Const: Awake, alert, frail, appears chronically unwell Cardiac: regular rate, regular rhythm RESP: unlabored, clear bilaterally, no wheezing GI: Soft, nontender, nondistended, no rebound, no guarding Skin: Warm, Dry, intact, no rashes Neuro: AO x3, CN II-XII grossly intact, moves all extremities Course Orders Ordered: Discontinued Medications Glycerin (Glycerin Supp Adult 1 Supp) 1 each NE NOW ONE Stop: 08/27/23 07:55 Last Admin: 08/27/23 08:55 Dose: 1 each Documented By: SUMMER Sodium Chloride (Normal Saline 0.9%) 1,000 mls @ 1,000 mls/hr IV BOLUS ONE Stop: 08/27/23 10:17 Last Infusion: 08/27/23 11:39 Dose: Infused Documented By: Admin: 08/27/23 10:31 Dose: 1,000 mls/hr Documented By: SUMMER Ceftriaxone Sodium 2,000 mg/ (Sodium Chloride) 100 mls @ 200 mls/hr IV NOW ONE Stop: 08/27/23 10:26 Last Infusion: 08/27/23 11:40 Dose: Infused Documented By: Admin: 08/27/23 10:46 Dose: 200 mls/hr Documented By: SUMMER Polyethylene Glycol/Electrolytes ([id number]/Sod Sulf,Bicarb,Cl/Kcl 4,000 Ml Solution) 4,000 ml PO NOW ONE Stop: 08/27/23 09:19 Last Admin: 08/27/23 10:38 Dose: 4,000 ml Documented By: SUMMER Sodium Biphosphate/Sodium Phosphate (Fleets Enema) 1 each NE NOW ONE Stop: 08/27/23 07:55 Last Admin: 08/27/23 10:28 Dose: 1 each Documented By: SUMMER Vital Signs Vital signs: Vital Signs - 8 hr 08/27/23 07:43 Temperature 97.9 F Pulse Rate 89 Respiratory Rate 16 Blood Pressure 150/69 H Pulse Oximetry 98 Oxygen Delivery Method Room Air Medical Decision Making Lab Data 08/27/23 08:17 08/27/23 08:17 Labs: Lab Results 08/27/23 08/27/23 Range/Units 08:17 09:52 WBC 10.6 (4.5-11.0) X10^3/uL RBC 3.71 L (4.5-5.9) X10^6/uL Hgb 12.1 L (13.5-17.5) g/dL Hct 33.9 L (41-53) % MCV 91.3 (80-100) fL MCH 32.6 (26-34) PG MCHC 35.7 (30-36) % RDW 12.7 (11.6-14.8) % Plt Count 198 (150-400) X10^3/uL Neut % (Auto) 91.4 H (50-75) % Lymph % (Auto) 4.6 L (25-40) % Wise % (Auto) 3.5 (3-14) % Eos % (Auto) 0.2 L (2-4) % Baso % (Auto) 0.3 (0-2) % Neut # (Auto) 9700 H (5933-6798) /uL Lymph # (Auto) 500 L (3073-9778) /uL Wise # (Auto) 400 (0-900) /uL Eos # (Auto) 0 (0-450) /uL Baso # (Auto) 0 (0-100) /uL Sodium 129 L (137-145) mmol/L Potassium 3.8 (3.4-5.1) mmol/L Chloride 102 (98-107) mmol/L Carbon Dioxide 22 (22-32) mmol/L BUN 23 H (9-20) mg/dL Creatinine 1.25 (0.66-1.25) mg/dL Estimated GFR 58 L (>60) mL/min BUN/Creatinine Ratio 18.4 (6-22) Glucose 108 (80-110) mg/dL Lactate 1.1 (0.7-2.1) mmol/L Calcium 8.7 (8.4-10.2) mg/dL Total Bilirubin 1.5 H (0.2-1.3) mg/dL AST 27 (17-59) IU/L ALT 21 (<50) IU/L Alkaline Phosphatase 67 (38-126) U/L Total Protein 6.4 (6.3-8.2) g/dL Albumin 3.8 (3.5-5.0) g/dL Globulin 2.6 (1.7-4.1) g/dL Albumin/Globulin Ratio 1.5 (1.0-2.8) Procalcitonin 0.098 (<0.5) ng/mL Urine Color Yellow Urine Appearance Cloudy Urine pH 6.0 (4.5-8.0) Ur Specific [place] 1.015 (1.000-1.035) Urine Protein Trace H (Negative) Urine Glucose (UA) Negative (Negative) g/dL Urine Ketones 1+ H (NEGATIVE) Urine Occult Blood 2+ H (Negative) Urine Nitrate Positive H (Negative) Urine Bilirubin Negative (NEGATIVE) Urine Urobilinogen 1.0 (0.2) E.U./dL Ur Leukocyte Esterase 3+ H (NEGATIVE) Urine RBC 1-5/hpf (0-5/HPF) Urine WBC >100/hpf H (0-5/HPF) Ur Squamous Epith Cells 0-1 /hpf (0-5/HPF) Calcium Oxalate Crystal Occasional H Urine Bacteria Many (>30) H (None) Ur Culture Indicated? Specimen cultured Micro UA Comment Vol Urine Centrifuged 10ml (spun) Imaging Data Abdominal x-ray: Radiologist's Impression: PROCEDURE: XR KUB INDICATIONS: CONSTIPATION TECHNIQUE: One view of the abdomen acquired. COMPARISON: [facility], CR, XR ACUTE ABDOMEN SERIES, 06/16/2023, 10:52. FINDINGS: Surgical changes and devices: Clips in the lower pelvis Bowel: Large fecal loading. Bowel gas pattern is not specific for obstruction. Soft tissues: No suspicious calcifications Bones: Degenerative changes IMPRESSION: Large fecal loading. If there is high concern for acute abdomen, consider CT. Dictated by: Cal Ulrich M.D. on 08/27/2023 at 8:50 Approved by: Cal Ulrich M.D. on 08/27/2023 at 8:51 MDM Narrative Medical decision making narrative: Chronically unwell but not acutely toxic patient presenting with general feeling of unwell also complaining of constipation not relieved with [id number] stool softeners. Patient is still tolerating p.o. and passing flatus, abdomen is soft and nondistended, low suspicion for obstruction at this time. Laboratory work and x-ray imaging ordered for assessment. Patient reports feeling feverish last night, no fever measured in triage, no antipyretics taken prior to arrival Laboratory work reviewed, WBC count 10.6, hemoglobin 12.1, platelet count 198, neutrophil percentage 91, sodium 129, potassium 3.8, chloride 102, creatinine 125, T bili 1.5, AST 27, ALT 21, alk phos 67. Procalcitonin 0.098. KUB shows large stool burden without evidence of obstruction. Patient was given a glycerin suppository and an enema in the emergency department with large volume production of stool. Urine positive for nitrites, leukocyte esterase, large amount of WBCs and many bacteria. Calcium oxalate crystals seen occasionally, however patient did have recent bladder stone removal. Patient counseled on all lab and imaging findings. Patient continues to report hesitation to try Cipro due to possible interaction with his cardiac medications. Rx Switched to cefpodoxime. Patient given a jug of GoLYTELY to help continue his GI regimen at home. Discharge Plan Departure Patient Disposition: Home Clinical Impression: Constipation, Acute UTI Instructions: DI for Urinary Tract Infection (UTI), DI for Constipation Activity Restrictions/Additional Instructions: Finish all of the antibiotics as prescribed even if you are feeling better. Use the given GoLYTELY in order to help produce a bowel movement. Continue to follow up with your urologist. Prescriptions: New cefpodoxime 200 mg tablet 200 mg PO Q12H Qty: 20 0RF Rx Instructions: must administer with a meal/food No Action Eliquis 5 mg tablet 5 mg PO BID metoprolol tartrate 25 MG tablet 12.5 mg PO DAILY Qty: 0 clopidogrel 75 mg tablet 75 mg PO DAILY atorvastatin 20 mg tablet 20 mg PO DAILY coenzyme Q10 100 mg capsule 100 mg PO DAILY multivitamin 1 tab PO DAILY Referrals: Rosalio Tanner MD [Primary Care Provider] - Stand Alone Forms: Patient Portal/API
--- NOTE | 2023-08-27 08:23 | EKG_ITS ---
[address] [address] Test Date: 2023-08-27 Pat Name: Len Bennett Department: Room: Gender: Male [employer] Agent: DANIELLE : 1940 Requested By: Order Number: [id number] Reading MD: Rosalio Tanner MD Measurements Intervals Rea Rate: 80 P: 35 NC: 160 QRS: -35 QRSD: 100 T: 46 QT: 372 QTc: 429 Interpretive Statements Normal sinus rhythm Left axis deviation Electronically Signed On 08-28-2023 12:03:37 PDT by Rosalio Tanner MD
[2023-08-27 08:30] LABS: Add Manual Diff / Slide Review NO; Basophils Absolute Auto 0 /uL (0-100); Basophils Percent Auto 0.3 % (0-2); Eosinophils Absolute Auto 0 /uL (0-450); Eosinophils Percent Auto 0.2 % (2-4); Hematocrit 33.9 % (41-53); Hemoglobin 12.1 g/dL (13.5-17.5); Lymphocytes Absolute Auto 500 /uL (1100-4500); Lymphocytes Percent Auto 4.6 % (25-40); Mean Corpuscular HGB Conc 35.7 % (30-36); Mean Corpuscular Hemoglobin 32.6 PG (26-34); Mean Corpuscular Volume 91.3 fL (80-100); Monocytes Absolute Auto 400 /uL (0-900); Monocytes Percent Auto 3.5 % (3-14); Neutrophils Absolute Auto 9700 /uL (1500-7000); Neutrophils Percent Auto 91.4 % (50-75); Platelet Count 198 X10^3/uL (150-400); Red Blood Cell Count 3.71 X10^6/uL (4.5-5.9); Red Cell Distribution Width 12.7 % (11.6-14.8); White Blood Cell Count 10.6 X10^3/uL (4.5-11.0)
[2023-08-27 08:55] LABS: Lactate (Lactic Acid) 1.1 mmol/L (0.7-2.1)
[2023-08-27] MEDS: GLYCERIN SUPP ADULT 1 SUPP 1 EACH PR (08:55)
[2023-08-27 08:56] LABS: Alanine Aminotransferase 21 IU/L (<50); Albumin 3.8 g/dL (3.5-5.0); Albumin Globulin Ratio 1.5 (1.0-2.8); Alkaline Phosphatase 67 U/L (38-126); Aspartate Aminotransferase 27 IU/L (17-59); BUN Creatinine Ratio 18.4 (6-22); Bilirubin Total 1.5 mg/dL (0.2-1.3); Blood Urea Nitrogen 23 mg/dL (9-20); Calcium 8.7 mg/dL (8.4-10.2); Carbon Dioxide 22 mmol/L (22-32); Chloride 102 mmol/L (98-107); Estimated Glomerular Filt Rate 58 mL/min (>60); Globulin 2.6 g/dL (1.7-4.1); Glucose 108 mg/dL (80-110); HEMOLYSIS < 15 (0-50); Potassium 3.8 mmol/L (3.4-5.1); Sodium 129 mmol/L (137-145); Total Protein 6.4 g/dL (6.3-8.2)
[2023-08-27 09:13] LABS: Procalcitonin 0.098 ng/mL (<0.5)
[2023-08-27 09:58] LABS: Appearance Urine UA CLOUDY; Bilirubin Urine UA NEGATIVE (NEGATIVE); Color Urine UA YELLOW; Glucose Urine UA NEGATIVE (Negative); Ketones Urine UA 1+ (NEGATIVE); Leukocyte Esterase Urine UA 3+ (NEGATIVE); Nitrite Urine UA POSITIVE (Negative); Occult Blood Urine UA 2+ (Negative); Protein Urine UA TRACE (Negative); Specific Gravity Urine UA 1.015 (1.000-1.035)
[2023-08-27 10:19] LABS: RBC Urine 1-5/HPF (0-5/HPF); Urine Volume 10mL (spun); WBC Urine >100/HPF (0-5/HPF)
[2023-08-27 10:20] LABS: Bacteria Urine Many (>30); Calcium Oxalate Crystals Urine Occasional; Culture Indicated Urine Specimen Cultured; Squamous Epithelial Cell Urine 0-1 /HPF (0-5/HPF)
[2023-08-27] MEDS: FLEETS ENEMA 1 EACH PR (10:28)
[2023-08-27] MEDS: SODIUM CHLORIDE 0.9% 1,000 ML 1000 ML IV (10:31)
[2023-08-27] MEDS: PEG3350/SOD SULF,BICARB,CL/KCL 4,000 ML SOLUTION 4000 ML PO (10:38)
[2023-08-27] MEDS: cefTRIAXone 2,000 MG in SODIUM CHLORIDE 0.9% 100 ML 200 MG IV (10:46)
== END 2023-08-27 12:06 | disposition home or self-care (01) ==
PROVIDERS: Emergency Provider Emergency Medicine; PCP Internal Medicine
DX: N39.0 Urinary tract infection, site not specified (principal); K59.00 Constipation, unspecified; R50.9 Fever, unspecified
CPT/HCPCS: 36415; 74018; 80053; 81001; 83605; 84145; 85025; 87077; 87086; 87186; 93005; 93010; 96365; 99284; J0696

== ENCOUNTER → 2023-09-02 07:13 | Outpatient (CLI) | payer MEDICARE, OTHER, SELFPAY ==
[2023-09-02 09:19] LABS: Alanine Aminotransferase 58 IU/L (<50); Albumin 3.2 g/dL (3.5-5.0); Albumin Globulin Ratio 1.2 (1.0-2.8); Alkaline Phosphatase 61 U/L (38-126); Aspartate Aminotransferase 65 IU/L (17-59); BUN Creatinine Ratio 13.6 (6-22); Bilirubin Total 0.8 mg/dL (0.2-1.3); Blood Urea Nitrogen 16 mg/dL (9-20); Calcium 9.2 mg/dL (8.4-10.2); Carbon Dioxide 25 mmol/L (22-32); Chloride 102 mmol/L (98-107); Cholesterol 110 mg/dL (140-199); Estimated Glomerular Filt Rate > 60 mL/min (>60); Globulin 2.7 g/dL (1.7-4.1); Glucose 105 mg/dL (80-110); HDL Cholesterol 44 mg/dL (40-60); HEMOLYSIS < 15 (0-50); LDL Cholesterol Calculated 49 mg/dL (<100); Potassium 4.5 mmol/L (3.4-5.1); Sodium 131 mmol/L (137-145); Total Protein 5.9 g/dL (6.3-8.2); Triglycerides 83 mg/dL (35-150)
== END ==
PROVIDERS: PCP Internal Medicine; Referring Provider Internal Medicine Cardiovascular Disease; Visit Provider Internal Medicine Cardiovascular Disease
DX: E78.5 Hyperlipidemia, unspecified (principal)
CPT/HCPCS: 36415; 80053; 80061

== ENCOUNTER → 2023-09-08 10:15 | Outpatient (CLI) | payer MEDICARE, OTHER, SELFPAY ==
[2023-09-08 10:58] LABS: Add Manual Diff / Slide Review NO; Basophils Absolute Auto 100 /uL (0-100); Basophils Percent Auto 0.8 % (0-2); Eosinophils Absolute Auto 0 /uL (0-450); Eosinophils Percent Auto 0.4 % (2-4); Hematocrit 36.9 % (41-53); Hemoglobin 13.1 g/dL (13.5-17.5); Lymphocytes Absolute Auto 900 /uL (1100-4500); Lymphocytes Percent Auto 12.2 % (25-40); Mean Corpuscular HGB Conc 35.5 % (30-36); Mean Corpuscular Hemoglobin 32.4 PG (26-34); Mean Corpuscular Volume 91.1 fL (80-100); Monocytes Absolute Auto 700 /uL (0-900); Monocytes Percent Auto 9.6 % (3-14); Neutrophils Absolute Auto 5800 /uL (1500-7000); Platelet Count 419 X10^3/uL (150-400); Red Blood Cell Count 4.05 X10^6/uL (4.5-5.9); Red Cell Distribution Width 12.4 % (11.6-14.8); White Blood Cell Count 7.5 X10^3/uL (4.5-11.0)
[2023-09-08 11:12] LABS: INR 1.3 (0.9-1.3); Prothrombin Time 14.6 SECONDS (9.4-12.5)
[2023-09-08 11:16] LABS: Alanine Aminotransferase 29 IU/L (<50); Albumin 3.9 g/dL (3.5-5.0); Albumin Globulin Ratio 1.4 (1.0-2.8); Alkaline Phosphatase 64 U/L (38-126); Aspartate Aminotransferase 30 IU/L (17-59); Bilirubin Total 0.9 mg/dL (0.2-1.3); Bilirubin Unconjugated 0.5 mg/dL (0.0-1.1); Creatine Kinase 62 U/L (55-170); Globulin 2.8 g/dL (1.7-4.1); HEMOLYSIS < 15 (0-50); Total Protein 6.7 g/dL (6.3-8.2)
[2023-09-08 11:18] LABS: HEMOLYSIS < 15 (0-50); Iron 79 ug/dL (49-181)
[2023-09-08 11:28] LABS: Percent Iron Saturation 25 % (20-50); Total Iron Binding Capacity 322 ug/dL (261-462); Transferrin 247 mg/dL (206-381)
[2023-09-08 16:25] LABS: Hep C Virus Ab w/Reflex Quant NEGATIVE s/c (NEGATIVE); Hepatitis B Surface Antigen NEGATIVE s/c (NEGATIVE)
[2023-09-09 04:09] LABS: Ceruloplasmin 25.5 mg/dL (16.0-31.0)
[2023-09-09 06:10] LABS: Hepatitis B Surf Ab Qualitativ Non Reactive (.)
[2023-09-10 10:36] LABS: Smooth Muscle Antibody 6 Units (0-19)
== END ==
PROVIDERS: PCP Internal Medicine; Referring Provider Internal Medicine; Visit Provider Internal Medicine
DX: D64.9 Anemia, unspecified (principal); K73.9 Chronic hepatitis, unspecified; E78.2 Mixed hyperlipidemia
CPT/HCPCS: 36415; 80076; 82390; 82550; 82784; 83516; 83540; 83550; 85025; 85610; 86015; 86038; 86255; 86706; 86803; 87340

== ENCOUNTER → 2023-09-21 18:39 | Outpatient (CLI) | payer MEDICARE, OTHER, SELFPAY | PROVIDERS: PCP Internal Medicine; Visit Provider Nurse Practitioner Family | DX: R30.0 Dysuria (principal) | CPT/HCPCS: 87077; 87086; 87186 ==

== ENCOUNTER 2024-01-30 09:27 | Day surgery (SDC) | payer MEDICARE, OTHER, SELFPAY ==
--- NOTE | 2024-01-30 10:06 | PM.HP.1 ---
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 Ankle pain GERD (gastroesophageal reflux disease) Hernia of abdominal wall Surgical History S/P urological surgery (~2018) S/P hernia repair (~2018) S/P coronary artery stent placement (~2017) History of inguinal hernia repair, bilateral History of cataract extraction with lens replacement Family History Father Cancer Mother Stroke Grandfather Stroke Grandmother Breast cancer, stage 0 Social History marital status: household members: spouse Smoking Status: Never smoker alcohol intake: current substance use type: does not use Meds Home Medications and Allergies Home Medications Medication Instructions Recorded Confirmed Type metoprolol tartrate 25 mg tablet 12.5 mg PO DAILY ##0 06/27/16 01/30/24 History multivitamin 1 tab PO DAILY 10/06/17 09/21/23 History atorvastatin 20 mg tablet 20 mg PO DAILY 12/07/17 01/30/24 History coenzyme Q10 100 mg capsule 100 mg PO DAILY 12/07/17 09/21/23 History apixaban 5 mg tablet (Eliquis) 5 mg PO BID 06/16/18 01/30/24 History clopidogrel 75 mg tablet 75 mg PO DAILY 03/03/20 01/30/24 History cefdinir 300 mg capsule 300 mg PO BID #14 caps 09/21/23 01/30/24 Rx Allergies Allergy/AdvReac Type Severity Reaction Status Date / Time No Known Allergies Allergy Verified 01/30/24 10:00 Exam Narrative Exam Narrative: Oropharynx free of lesions Chest clear to auscultation percussion Cardiac exam reveals no S3 or murmur Assessment & Plan Assessment & Plan narrative: Suprasternal notch/upper substernal dysphagia. Need for EGD to evaluate and possibly dilate. Risks, benefits, alternatives have been explained. Time-Based Coding :: [TOTAL MINUTES] spent with patient and on the chart (including review of chart, obtaining history, exam, reviewing outside data, placing orders, documenting exam and treatment plan, and counseling patient) on [DATE].
--- NOTE | 2024-01-30 10:07 | PM.OP.EGD ---
Operative Date/Time/Diagnoses Date of procedure: 01/30/24 Pre-op diagnosis: See indication and findings Procedure & Clinicians Study performed: EGD Indications: Dysphagia Surgeon: Thania Galarza Procedure Notes Procedure in detail: After informed consent was obtained the patient was placed in left lateral decubitus position. The video upper scope was placed into the oropharynx and with the patient's help swollowed into the esophagus. The esophagus stomach and duodenum were carefully examined. On withdrawal, retroflexed view the GE junction was performed. The scope was removed. The patient tolerated procedure well. Blood loss none Complications none Sedation mac Findings 1. No mechanical cause for dysphagia seen. In particular no webs in the upper esophagus and no Schatzki's ring. Squamocolumnar junction was quite regular. 2. Patchy gastric erythema along with few hematin flecks biopsies taken to rule out Helicobacter 3. Normal duodenal bulb and sweep Think it is likelihood the patient has reflux at the bases of his dysphagia. Since he is on Plavix I would choose to have him try lansoprazole 30 mg daily which can get [id number]. You should then call in 4-8 weeks to let us know how he is doing.
[2024-01-30 10:12] VITALS: BP 137/75; PULSE 56; RESP 18; TEMP 36.1; O2SAT 100
[2024-01-30 10:58] VITALS: BP 108/56; PULSE 106; RESP 16; TEMP 36.1; O2SAT 98
[2024-01-30 11:03] VITALS: BP 109/58; PULSE 91; RESP 16; O2SAT 98
[2024-01-30 11:10] VITALS: BP 110/70; PULSE 97; RESP 16; O2SAT 98
[2024-01-30 11:17] VITALS: BP 114/70; PULSE 78; RESP 16; TEMP 36.2; O2SAT 98
== END 2024-01-30 11:30 | disposition home or self-care (01) ==
PROVIDERS: PCP Internal Medicine; Referring Provider Internal Medicine Gastroenterology; Visit Provider Internal Medicine Gastroenterology
PROC: 0DJ08ZZ Inspection of Upper Intestinal Tract, Via Natural or Artificial Opening Endoscopic (ICD-10-PCS; CPT 43235; principal; 2024-01-30 10:30)
DX: R13.10 Dysphagia, unspecified (principal); K29.50 Unspecified chronic gastritis without bleeding
CPT/HCPCS: 43239; J2704; J3010

== ENCOUNTER → 2024-11-28 12:26 | Outpatient (CLI) | payer MEDICARE, OTHER, SELFPAY ==
--- NOTE | 2024-12-03 18:35 | DI.NM.S_ITS ---
DATE OF SERVICE: 11/28/2024 NUCLEAR CARDIOLOGY MYOCARDIAL PERFUSION STUDY PROCEDURE: Exercise stress and rest myocardial perfusion imaging with gating to assess ejection fraction and regional wall motion. ORDERING PROVIDER: Dianne Murcia MD. INDICATIONS: The patient is an 84-year-old male with a history of multivessel percutaneous revascularization who presents with an episode of vague chest tightness. CARDIAC STRESS: The patient was able to exercise for a total of 6 minutes 47 seconds on a standard [place] protocol, suggesting excellent exercise capacity with an THOMAS of -37%, achieving 7.0 METS. He had a normal heart rate and blood pressure response, achieving a maximum heart rate of 118 bpm (86% of his predicted maximum). He developed mild chest discomfort at peak exercise that resolved immediately in recovery. His resting ECG shows sinus rhythm with normal ST segments. With stress, there are no significant ST-segment shifts or arrhythmias except for an isolated PVC late in recovery. At 6 minutes 30 seconds of exercise at a heart rate of 113 bpm, 25.0 millicuries of technetium-99m Myoview was injected and he was imaged 15 minutes later using a gated SPECT acquisition protocol. Five days later while at rest, he was injected with 26.4 mCi of technetium-99m Myoview and was imaged 15 minutes later, again using a gated SPECT acquisition protocol. FINDINGS: 1. Raw data. There is fairly good myocardial tracer uptake. The lung/heart ratio is normal at 0.14 with a normal TID ratio of 1.03. 2. Quantitated gated SPECT: The post-stress ejection fraction is estimated at 68% with hypokinesis in the proximal to mid inferior wall, sparing the distal inferior wall. The resting ejection fraction is 72% with a borderline increased resting end-diastolic volume of 128 mL. The proximal inferior hypokinesis remains present and unchanged. 3. Myocardial perfusion imaging: Post-stress supine images shows moderately reduced tracer activity throughout the inferior wall, extending into the inferolateral wall at the base and becoming more severe distally. While this could represent diaphragmatic attenuation, a slight defect remains present in the mid to distal inferior wall, suggesting it likely represents a true perfusion defect, but with normal perfusion in the proximal to mid inferior and inferolateral wall suggesting some probable attenuation artifact. The resting images show a near identical perfusion pattern except slight improvement in the distal inferior segment. IMPRESSION: 1. Abnormal myocardial perfusion study but likely low risk. 2. Predominantly fixed but slightly reversible perfusion defect throughout the inferior wall, extending into the inferolateral wall at the base, but with resolution of this defect proximally on the prone images, suggesting some attenuation artifact contributing to this defect. 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 3. Preserved left ventricular systolic function although with probable inferior hypokinesis near the base. Left ventricular volumes are borderline increased. 4. Excellent exercise capacity with mild chest discomfort at peak exercise that resolves promptly in recovery. There were no significant ST-segment shifts and only a rare isolated PVC in recovery. 5. A previous perfusion study from 07/08/2023 is noted in the medical record but is not available for review. The study from 12/18/2019 is available and shows a very similar perfusion pattern with a predominantly fixed perfusion defect in the inferior wall, again with improvement on the prone images. His previous TOHMAS I was -43% with transient chest discomfort at peak exercise on that study as well. His previous ejection fraction was 69% with stress, 58% at rest, with an end- diastolic volume of 109 mL suggesting the absence of any significant change from the previous exam except slightly larger left ventricular volumes. Len Bennett - RS/fn/INFORMATICS SCIENTIST doc#: [id number]/job#: [id number] dd: 12/03/2024 17:11:00 dt: 12/03/2024 17:45:00 DICTATING MD/COPIES TO: Rangel Patrick MD; Dianne Murcia MD COPIES MNE: [id number];
== END ==
PROVIDERS: PCP Internal Medicine; Referring Provider Internal Medicine Cardiovascular Disease; Visit Provider Internal Medicine Cardiovascular Disease
DX: R94.39 Abnormal result of other cardiovascular function study (principal); R06.09 Other forms of dyspnea
CPT/HCPCS: 78452; 93017; A9502